=== PATIENT | female | born 1955 | race Caucasian/White ===

== ENCOUNTER 2017-05-16 10:40 | Emergency (ER) | payer BC ==
[2017-05-16] MEDS ORDERED: cephALEXin 250 MG CAPSULE PO STA (14:24)
[2017-05-16 15:22] LABS: BASOPHILS % (AUTO) 0.4 %; EOSINOPHILS % (AUTO) 0.1 %; HGB - HEMOGLOBIN 13.9 g/dL (12.0-16.0); LYMPHOCYTES # (AUTO) 0.8 10^3/uL (1.5-3.5); LYMPHOCYTES % (AUTO) 9.6 %; MEAN CORPUSCULAR HEMOGLOBIN 28.9 pg (27.0-31.0); MEAN CORPUSCULAR HGB CONC 34.3 g/dL (32.0-36.0); MEAN CORPUSCULAR VOLUME 84.4 fL (81.0-99.0); MEAN PLATELET VOLUME 9.1 fL (7.9-10.8); MONOCYTES # (AUTO) 0.7 10^3/uL (0.0-1.0); MONOCYTES % (AUTO) 8.1 %; NEUTROPHILS # (AUTO) 7.2 10^3/uL (1.5-6.6); NEUTROPHILS % (AUTO) 81.8 %; PLT - PLATELET COUNT 112 10^3/uL (130-450); WHITE BLOOD COUNT 8.9 x10^3/uL (4.8-10.8)
[2017-05-16 15:30] LABS: CALCIUM 9.5 mg/dL (8.5-10.3); CREATININE 1.3 mg/dL (0.4-1.0)
--- NOTE | 2017-05-16 15:51 | ED Physician Documentation ---
History of Present Illness - Stated complaint Stated Complaint: LEFT LEG REDNESS/SWOLLEN - Chief complaint Chief Complaint: Ext Problem - History obtained from History obtained from: Patient - Additonal information Additional information: The patient is a 62-year-old female who presents with redness of her left lower extremity. She first noticed it this morning, but is unsure whether or not it had been there previously. She reports having "sweats" last night. She denies fever today. She denies cough or shortness of breath, or chest pain. She denies history of similar symptoms in the past. Her past medical history is significant for diabetes with peripheral neuropathy. 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 Review of Systems Constitutional: reports: Fatigue, Sweats Nose: denies: Congestion Throat: denies: Sore throat Cardiac: denies: Chest pain / pressure Respiratory: denies: Dyspnea, Cough GI: denies: Abdominal Pain, Nausea, Vomiting : denies: Dysuria Skin: reports: Rash (Left lower leg.) Musculoskeletal: reports: Extremity pain (Left lower leg.) Neurologic: denies: Focal weakness, Headache PD PAST MEDICAL HISTORY - Past Medical History Cardiovascular: Hypertension, High cholesterol Respiratory: None Neuro: Peripheral neuropathy Endocrine/Autoimmune: Type 2 diabetes, HyPERthyroidism GI: GERD : Incontinence HEENT: None Psych: None Musculoskeletal: Fatigue Derm: None - Past Surgical History Past Surgical History: No - Present Medications Home Medications: Ambulatory Orders Medication Instructions Recorded Confirmed Ascorbic Acid [Vitamin C] 1,000 mg PO DAILY 06/01/14 01/21/16 Aspirin [Aspirin EC] 1 tab PO DAILY 06/01/14 01/21/16 Calcium Carb, Citrate/Vit D3 1 each PO DAILY 06/01/14 01/21/16 [Calcium + D3 ER Tablet] Cinnamon Bark [Cinnamon] 1 cap PO DAILY 06/01/14 01/21/16 Ferrous Sulfate 325 mg PO DAILY 06/01/14 01/21/16 Lutein [Natural Lutein] 20 mg PO DAILY 06/01/14 01/21/16 Metoprolol Tartrate 100 mg PO BID 06/01/14 01/21/16 Multivitamin [Multi Vitamin Daily] 1 each PO DAILY 06/01/14 01/21/16 cephALEXin [Cephalexin] 500 mg PO TID #20 tablet 05/16/17 - Allergies Allergies/Adverse Reactions: Allergies Allergy/AdvReac Type Severity Reaction Status Date / Time No Known Drug Allergies Allergy Verified 05/17/17 11:06 - Social History Does the pt smoke?: No Smoking Status: Never smoker Does the pt drink ETOH?: No Does the pt have substance abuse?: No - Immunizations Immunizations are current?: No - POLST Patient has POLST: No PD ED PE NORMAL - Vitals Vital signs reviewed: Yes (normal) - General General: Alert and oriented X 3, Well developed/nourished - HEENT HEENT: Atraumatic, Moist mucous membranes, Pharynx benign - Neck Neck: No adenopathy, No JVD - Cardiac Cardiac: RRR, No murmur - Respiratory Respiratory: No respiratory distress, Clear bilaterally - Abdomen Abdomen: Soft, Non tender - Back Back: No CVA TTP - Derm Derm: Other (Erythema along the anterior aspect of the left lower leg, with some petechiae noted.) - Extremities Extremities: No calf tenderness / cord, Other (There is 1+ pedal edema bilaterally. There is erythema along the anterior aspect of the left lower leg extending from ankle to mid lower leg. There is associated warmth to palpation , and mild tenderness. There is no lymphangitic streaking. There is no calf tenderness. Distal light touch sensation is diminished consistent with diabetic peripheral neuropathy.) - Neuro Neuro: Alert and oriented X 3, No motor deficit, Other (Peripheral neuropathy) Results - Vitals Vitals: Vital Signs - 24 hr 05/16/17 15:56 Heart Rate 71 Respiratory 16 Rate Blood Pressure 110/50 L O2 Saturation 99 Oxygen O2 Source Room air - Labs Labs: Laboratory Tests 05/16/17 05/16/17 15:10 15:10 WBC 8.9 RBC 4.80 Hgb 13.9 Hct 40.5 MCV 84.4 MCH 28.9 MCHC 34.3 RDW 14.0 Plt Count 112 L MPV 9.1 Neut # 7.2 H Lymph # 0.8 L [place] # 0.7 Eos # 0.0 Baso # 0.0 Absolute Nucleated RBC 0.01 Nucleated RBC % 0.1 Sodium 137 Potassium 3.6 Chloride 102 Carbon Dioxide 25 Anion Gap 10.0 BUN 27 H Creatinine 1.3 H Estimated GFR (MDRD) 42 L Glucose 100 Calcium 9.5 PD MEDICAL DECISION MAKING - ED course Complexity details: reviewed results, re-evaluated patient, considered differential, d/w patient ED course: The patient's presentation is consistent with cellulitis of the left lower extremity. She does not appear septic, and her white blood cell count is normal at 8.9. DVT was considered, but is less likely, with no calf tenderness , and no evidence of swelling on the left leg greater than the right. Treatment in the emergency department included administration of cephalexin 500 mg orally. She is being discharged with prescription for cephalexin. 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 Departure - Departure Disposition: 01 Home, Self Care Clinical Impression: Cellulitis Qualifiers: Site of cellulitis: extremity Site of cellulitis of extremity: lower extremity Laterality: left Qualified Code(s): L03.116 - Cellulitis of left lower limb Diabetes Qualifiers: Diabetes mellitus type: type 2 Condition: Stable Instructions: ED Infec Skin Cellulitis Follow-Up: Linda Panda PA-C [Primary Care Provider] - Prescriptions: cephALEXin [Cephalexin] 500 mg PO TID #20 tablet Comments: Keep your left leg elevated as much of the time as possible. Take cephalexin 3 times daily as prescribed. He can use Tylenol or ibuprofen if needed for fever or discomfort. Follow up with your primary physician within 1-2 weeks. Call to schedule appointment. Return to the emergency department if you develop increasing redness or swelling of your leg, or otherwise worsening symptoms. Discharge Date/Time: 05/16/17 16:00
[2017-05-16 15:57] VITALS: BP 110/50
== END 2017-05-16 16:00 | disposition home or self-care (01) ==
LOC: ED 10:40
DX: L03.116 Cellulitis of left lower limb (principal); I10 Essential (primary) hypertension; E11.42 Type 2 diabetes mellitus with diabetic polyneuropathy; E78.00 Pure hypercholesterolemia, unspecified; E05.90 Thyrotoxicosis, unspecified without thyrotoxic crisis or storm; K21.9 Gastro-esophageal reflux disease without esophagitis; Z79.82 Long term (current) use of aspirin
CPT/HCPCS: 36415; 80048; 85025; 99283; A9270

== ENCOUNTER 2017-05-17 10:59 | Inpatient (IN) | payer BC ==
[2017-05-17] MEDS ORDERED: cefTRIAXone 1 GM in SODIUM CHLORIDE 0.9% MINIBAG 100 ML IV STA (13:06)
--- NOTE | 2017-05-17 13:09 | ED Physician Documentation ---
History of Present Illness - Stated complaint Stated Complaint: LEFT LEG/FOOT PX - Chief complaint Chief Complaint: Ext Problem - History obtained from History obtained from: Patient, Family - History of Present Illness Timing: How many days ago (3) - Additonal information Additional information: 62-year-old female developed a headache on Friday 3 days ago the following night she developed some sweats and in the morning of the day after that she noticed some swelling and redness to her left calf. This is the same leg she had amputation of the fifth toe. She has had a similar infectious process 3 years ago.She was seen in the emergency department yesterday and started on Keflex. Overnight the rash like redness that was present on her calf has become confluent.She has noted the callus on the sole of her foot to be draining some clear fluid. Review of Systems Constitutional: reports: Fatigue, Sweats. denies: Fever Eyes: denies: Decreased vision Ears: denies: Ear pain Nose: denies: Congestion Throat: denies: Sore throat Cardiac: denies: Chest pain / pressure, Palpitations Respiratory: denies: Dyspnea, Cough GI: denies: Abdominal Pain, Nausea, Vomiting : denies: Dysuria, Frequency Skin: reports: Rash Musculoskeletal: reports: Extremity pain, Extremity swelling. denies: Neck pain , Back pain Neurologic: reports: Headache. denies: Generalized weakness, Focal weakness, Numbness, Head injury, LOC PD PAST MEDICAL HISTORY - Past Medical History Past Medical History: Yes Cardiovascular: Hypertension, High cholesterol Respiratory: None Neuro: None Endocrine/Autoimmune: HyPERthyroidism GI: GERD : Incontinence HEENT: None Psych: None Musculoskeletal: Fatigue Derm: None - Past Surgical History Past Surgical History: Yes - Present Medications Home Medications: Ambulatory Orders Medication Instructions Recorded Confirmed Ascorbic Acid [Vitamin C] 1,000 mg PO DAILY 06/01/14 05/17/17 Aspirin [Aspirin EC] 1 tab PO DAILY 06/01/14 05/17/17 Calcium Carb, Citrate/Vit D3 1 each PO DAILY 06/01/14 05/17/17 [Calcium + D3 ER Tablet] Cinnamon Bark [Cinnamon] 1 cap PO DAILY 06/01/14 05/17/17 Ferrous Sulfate 325 mg PO DAILY 06/01/14 05/17/17 Lutein [Natural Lutein] 20 mg PO DAILY 06/01/14 05/17/17 Metoprolol Tartrate 100 mg PO BID 06/01/14 05/17/17 Multivitamin [Multi Vitamin Daily] 1 each PO DAILY 06/01/14 05/17/17 cephALEXin [Cephalexin] 500 mg PO TID #20 tablet 05/16/17 05/17/17 Amlodipine Bes/Olmesartan Med 1 tab PO DAILY 05/17/17 05/17/17 [Tyrese 5-20 mg Tablet] - Allergies Allergies/Adverse Reactions: Allergies Allergy/AdvReac Type Severity Reaction Status Date / Time No Known Drug Allergies Allergy Verified 05/17/17 11:06 - Social History Does the pt smoke?: No Smoking Status: Never smoker Does the pt drink ETOH?: No Does the pt have substance abuse?: No - Immunizations Immunizations are current?: No - POLST Patient has POLST: No PD ED PE NORMAL - Vitals Vital signs reviewed: Yes (hypotensive with wide pulse pressure ) - General General: Alert and oriented X 3, No acute distress, Well developed/nourished - HEENT HEENT: Atraumatic, PERRL, EOMI - Neck Neck: Supple, no meningeal sign - Cardiac Cardiac: RRR, No murmur - Respiratory Respiratory: No respiratory distress, Clear bilaterally - Abdomen Abdomen: Soft, Non tender - Back Back: No CVA TTP, No spinal TTP - Derm Derm: Normal color, Warm and dry - Extremities Extremities: Other (There is erythema to the anterior calf on the left. There erythema extends from the sock line on the lower calf to the knee. There is a blister in the middle of the sock line. The sock line is not deep. There is a calus on the plantar surface of the foot laterally and distally and there is no current drainage. The 5th toe is absent after amputation. ) - Neuro Neuro: No motor deficit Eye Opening: Spontaneous Motor: Obeys Commands Verbal: Oriented GCS Score: 15 - Psych Psych: Normal mood, Normal affect Results - Vitals Vitals: Vital Signs - 24 hr 05/17/17 11:03 Temperature 36.4 C L Heart Rate 69 Respiratory 20 Rate Blood Pressure 111/58 L O2 Saturation 100 Oxygen O2 Source Room air - Labs Labs: Laboratory Tests 05/17/17 05/17/17 05/17/17 13:20 13:20 13:20 WBC 7.4 RBC 5.11 Hgb 14.7 Hct 42.8 MCV 83.8 MCH 28.8 MCHC 34.4 RDW 13.7 Plt Count 148 MPV 9.7 Neut # 5.8 Lymph # 1.0 L [place] # 0.5 Eos # 0.0 Baso # 0.1 Absolute Nucleated RBC 0.00 Nucleated RBC % 0.0 ESR 28 Sodium 139 Potassium 3.5 Chloride 103 Carbon Dioxide 24 Anion Gap 12.0 BUN 28 H Creatinine 1.1 H Estimated GFR (MDRD) 50 L Glucose 120 H Calcium 9.7 Total Bilirubin 0.7 AST 22 ALT 22 Alkaline Phosphatase 56 C-Reactive Protein 13.3 H Total Protein 8.0 Albumin 4.2 Globulin 3.8 Albumin/Globulin Ratio 1.1 Lipase 40 PD MEDICAL DECISION MAKING - ED course Complexity details: reviewed old records, reviewed results, re-evaluated patient , considered differential, d/w patient ED course: 62-year-old female with left lower extremity cellulitis has failed outpatient management with Keflex. She has prior history of failure and resulting amputation. More aggressive therapy is indicated and I have consulted our hospitalist Dr. Mendoza who will admit the patient to the hospital. Here in the emergency department today she is given intravenous Rocephin. Departure - Departure Disposition: ED Place in Observation Clinical Impression: Foot ulcer due to secondary DM Cellulitis Qualifiers: Site of cellulitis: extremity Site of cellulitis of extremity: lower extremity Laterality: left Qualified Code(s): L03.116 - Cellulitis of left lower limb
[2017-05-17 13:38] LABS: BASOPHILS # (AUTO) 0.1 10^3/uL (0.0-0.1); BASOPHILS % (AUTO) 0.7 %; EOSINOPHILS % (AUTO) 0.7 %; HGB - HEMOGLOBIN 14.7 g/dL (12.0-16.0); LYMPHOCYTES % (AUTO) 13.5 %; MEAN CORPUSCULAR HEMOGLOBIN 28.8 pg (27.0-31.0); MEAN CORPUSCULAR HGB CONC 34.4 g/dL (32.0-36.0); MEAN CORPUSCULAR VOLUME 83.8 fL (81.0-99.0); MEAN PLATELET VOLUME 9.7 fL (7.9-10.8); MONOCYTES # (AUTO) 0.5 10^3/uL (0.0-1.0); MONOCYTES % (AUTO) 6.9 %; NEUTROPHILS # (AUTO) 5.8 10^3/uL (1.5-6.6); NEUTROPHILS % (AUTO) 78.2 %; PLT - PLATELET COUNT 148 10^3/uL (130-450); RED BLOOD COUNT 5.11 10^6/uL (4.20-5.40); RED CELL DISTRIBUTION WIDTH 13.7 % (12.0-15.0); WHITE BLOOD COUNT 7.4 x10^3/uL (4.8-10.8)
[2017-05-17 13:48] LABS: ALBUMIN 4.2 g/dL (3.2-5.5); ALBUMIN/GLOBULIN RATIO 1.1 (1.0-2.2); BILIRUBIN,TOTAL 0.7 mg/dL (0.2-1.0); CALCIUM 9.7 mg/dL (8.5-10.3); CREATININE 1.1 mg/dL (0.4-1.0); CRP - C-REACTIVE PROTEIN 13.3 mg/dL (0-1.0)
[2017-05-17] MEDS ORDERED: TEMAZEPAM 15 MG CAPSULE PO PRN (14:57)
[2017-05-17] MEDS ORDERED: ACETAMINOPHEN 325 MG TABLET PO PRN (14:57)
--- NOTE | 2017-05-17 15:25 | HISTORY & PHYSICAL EXAMINATION ---
Chief Complaint - Chief Complaint Chief Complaint: cellulitis History of Present Illness - Admitted From Admitted From:: ED - History Obtained From Records Reviewed: yes History obtained from: ED, chart review, patient Exam Limitations: none - History of Present Illness HPI Comment/Other: Stephanie Yeager is a well appearing 62-year old white female with a past medical history of morbid obesity, hypertension, diabetes mellitus type 2, hyperlipidemia, status post left fifth toe amputation, hyperthyroidism, GERD, and urinary incontinence. On Friday AM (8 days ago) she started to notice generalized weakness, and an illness coming on, with fever and chills. She presented to our ED yesterday with a LLE rash with swelling and tenderness, when she was prescribed oral antibiotics and sent home. Overnight, patient noted that her rash became worse and a callous that has been chronic since her amputation 3 years ago now became open. The callous is on the foot pad of her left amputation site and is the size of a dime with a tiny pencil lead sized opening in the shape of a slit. There is also a small blister noted on the anterior aspect of left arizmendi. Given this patient's history of osteomyelitis, she requires aggressive IV antibiotic treatment, wound culture and monitoring. History - Past Medical History Cardiovascular: reports: Hypertension, High cholesterol, Murmur Respiratory: reports: None, Sleep apnea (suspected as she evidence of snoring and day time sleepiness, but not worked up due to insurance issues.) Neuro: reports: None, Headache/migraine (history of ochular migraines.) Endocrine/Autoimmune: reports: HyPERthyroidism GI: reports: GERD : reports: Incontinence HEENT: reports: None Psych: reports: None Derm: reports: None MRSA Hx?: No - Past Surgical History Other past surgical history: Remarkable no surgical history except her 5th toe amputation. She still posesses all of her organs. - Family & Social History Family History: Mother: , Alzheimer's Disease, CAD, Father: , Sister: Alive and Well Living arrangement: At home Living Situation: Alone Social History Notes: Patient was born in [facility], [place] and is of [place] decent. 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 She has a 15 year old cat named Audra. She has never been and has never had children. She denies smoking, illicit drug use or alcohol use. Her closest family member is her sister, Mirtha Quintero who was present for this exam. - Substance History Use: Uses substance without health or social issues: NONE Abuse: Recurrent use of substance despite neg consequences: NONE Dependence: Experiences withdrawal or developed tolerances: NONE - POLST Patient has POLST: No POLST Status: Full Code Meds/Allgy - Home Medications Home Medications: Ambulatory Orders Medication Instructions Recorded Confirmed Ascorbic Acid [Vitamin C] 1,000 mg PO DAILY 06/01/14 05/17/17 Aspirin [Aspirin EC] 81 mg PO DAILY 06/01/14 05/17/17 Calcium Carb, Citrate/Vit D3 1 each PO DAILY 06/01/14 05/17/17 [Calcium + D3 ER Tablet] Cinnamon Bark [Cinnamon] 1 cap PO DAILY 06/01/14 05/17/17 Ferrous Sulfate 325 mg PO DAILY 06/01/14 05/17/17 Lutein [Natural Lutein] 20 mg PO DAILY 06/01/14 05/17/17 Metoprolol Tartrate 100 mg PO BID 06/01/14 05/17/17 Multivitamin [Multi Vitamin Daily] 1 each PO DAILY 06/01/14 05/17/17 Amlodipine Bes/Olmesartan Med 1 each PO DAILY 05/17/17 05/17/17 [Tyrese 5-40 mg Tablet] - Allergies Allergies/Adverse Reactions: Allergies Allergy/AdvReac Type Severity Reaction Status Date / Time No Known Drug Allergies Allergy Verified 05/17/17 11:06 Review of Systems - Constitutional Constitutional: reports: Fever, Chills - Eyes Eyes: reports: Corrective lenses - Ears, Nose & Throat Ears, Nose & Throat: reports: Postnasal drainage - Cardiovascular Cariovascular: reports: Irregular heart rate, Edema - Gastrointestinal Gastrointestinal: reports: Constipation, Reflux/heartburn - Genitourinary Genitourinary: reports: Dysuria, Incontinence - Integumentary Integumentary: reports: Dryness - Neurological Neurological: reports: Headache - All Other Systems All Other Systems: reports: Reviewed and negative Exam - Vital Signs Reviewed Vital Signs: Yes - Physical Exam General Appearance: positive: No acute distress, Alert Eyes Bilateral: positive: Normal inspection, PERRL ENT: positive: ENT inspection nml, Pharynx nml, No signs of dehydration Neck: positive: Nml inspection, Thyroid nml, No JVD, Trachea midline Respiratory: positive: Chest non-tender, No respiratory distress, Breath sounds nml Cardiovascular: positive: Regular rate & rhythm, No gallop, Systolic murmur Peripheral Pulses: positive: 2+ Abdomen: positive: Non-tender, No organomegaly, Nml bowel sounds, No distention , Other (obese) Back: positive: Nml inspection Skin: positive: Color nml, No rash, Warm, Dry Extremities: positive: Non-tender, Full ROM, Nml appearance, Pedal edema (left greater than right.) Neurologic/Psychiatric: positive: Oriented x3, CN's nml (2-12), Motor nml, Sensation nml, Mood/affect nml Reflexes: Bicep (R): 3+, Bicep (L): 3+ Conclusion/Plan - Problem List (1) Left leg cellulitis Conclusion/Plan: Patient has an irregular shaped "rash" looking cellulitis noted on LLE that we will treat as such. Outlined with a marking pen. Plan: Start IV antibiotics and orders for a wound culture that was obtained from a small blister after being lanced by a sterile needle. Monitor progression. (2) Foot ulcer due to secondary DM Conclusion/Plan: Chronic callous ulcer noted near previous amputation of 5th pinky Left toe ~3 years ago. Now this is noted to be open and appears to be a small slit in the middle of the thick callous. Plan: Monitor and suspicious for progression to reoccurring osteomyelitis. (3) Diabetes mellitus type 2, diet-controlled Conclusion/Plan: Patient states she has had diabetes for greater than 5 years and was previously on oral agents. She has since lost a total of 120lbs intentionally. She remains diet controlled and only check random sugars and are normally in the 80' s. Plan: Check HgA1C. No need to order blood sugar checks. Will monitor glucose in daily labs. (5) Hyperlipidemia associated with type 2 diabetes mellitus Conclusion/Plan: Patient has a history of this and does not take any statins. She takes cinnamon bark, and ASA. Plan: Continue medical management. Code status: FULL DVT prophylaxis: SCD's and enoxaprin. - Lab Results Lab results reviewed: Yes Fish Bones: 05/17/17 13:20 05/17/17 13:20 - Diagnostic Imaging Results Diagnostic Imaging Results: positive: Other (no diagnostic imaging taken.) - EKG Results EKG Interpreted Independently: Yes Core Measures - Anticipated LOS I expect patient to be DC'd or transferred within 96 hours.: Yes - DVT/VTE - Prophylaxis VTE/DVT Device ordered at admit?: Yes VTE/DVT Prophylaxis med ordered at admit?: Yes - Stroke - Rehab Assessment Rehab services assessment to be ordered?: Yes - AMI - Statin at Admit Aspirin Prescribed on Admit: Yes
[2017-05-17] MEDS: SODIUM CHLORIDE 0.9% 1,000 ML IV SCH (16:57)
[2017-05-17] MEDS: SODIUM CHLORIDE FLUSH 0.9% 10 ML SYRINGE IVP SCH (16:58)
[2017-05-17] MEDS: METOPROLOL TARTRATE 50 MG TABLET PO SCH (20:55)
[2017-05-17] MEDS: amLODIPine 5 MG TABLET PO SCH (20:55)
[2017-05-18] MEDS: SODIUM CHLORIDE 0.9% 1,000 ML IV SCH (02:50)
[2017-05-18 05:50] LABS: BASOPHILS % (AUTO) 0.9 %; EOSINOPHILS # (AUTO) 0.1 10^3/uL (0.0-0.7); EOSINOPHILS % (AUTO) 2.4 %; HGB - HEMOGLOBIN 11.7 g/dL (12.0-16.0); LYMPHOCYTES # (AUTO) 1.4 10^3/uL (1.5-3.5); MEAN CORPUSCULAR HEMOGLOBIN 28.6 pg (27.0-31.0); MEAN CORPUSCULAR HGB CONC 33.4 g/dL (32.0-36.0); MEAN CORPUSCULAR VOLUME 85.6 fL (81.0-99.0); MEAN PLATELET VOLUME 8.7 fL (7.9-10.8); MONOCYTES # (AUTO) 0.5 10^3/uL (0.0-1.0); MONOCYTES % (AUTO) 11.4 %; NEUTROPHILS # (AUTO) 2.4 10^3/uL (1.5-6.6); NEUTROPHILS % (AUTO) 54.3 %; PLT - PLATELET COUNT 117 10^3/uL (130-450); RED CELL DISTRIBUTION WIDTH 13.9 % (12.0-15.0); WHITE BLOOD COUNT 4.4 x10^3/uL (4.8-10.8)
[2017-05-18] MEDS: SODIUM CHLORIDE FLUSH 0.9% 10 ML SYRINGE IVP SCH ×3 (05:56→21:50)
[2017-05-18 06:05] LABS: ALBUMIN 3.1 g/dL (3.2-5.5); BILIRUBIN,TOTAL 0.6 mg/dL (0.2-1.0); CALCIUM 8.7 mg/dL (8.5-10.3); CREATININE 0.9 mg/dL (0.4-1.0); MAGNESIUM 1.9 mg/dL (1.7-2.8); PHOSPHORUS 2.6 mg/dL (2.5-4.6); TOTAL PROTEIN 6.1 g/dL (6.7-8.2)
[2017-05-18] MEDS: cefTRIAXone 1 GM in SODIUM CHLORIDE 0.9% MINIBAG 100 ML IV SCH ×2 (08:43→10:07)
[2017-05-18] MEDS: ASPIRIN EC 81 MG TABLET PO SCH (08:44)
[2017-05-18] MEDS: POTASSIUM CHLORIDE 20 MEQ TABLET PO SCH (08:44)
[2017-05-18] MEDS: METOPROLOL TARTRATE 50 MG TABLET PO SCH ×2 (08:44→21:50)
[2017-05-18] MEDS: POLYETHYLENE GLYCOL 3350 17 GM PACKET PO SCH (08:44)
[2017-05-18] MEDS: amLODIPine 5 MG TABLET PO SCH (08:44)
[2017-05-18] MEDS: CILOSTAZOL 100 MG TABLET PO SCH ×2 (12:29→21:50)
--- NOTE | 2017-05-18 14:33 | PROVIDER PROGRESS NOTE ---
Subjective - Prog Note Date Prog Note Date: 05/18/17 Prog Note Time: 14:31 - Subjective Pt reports feeling: No change Subjective: Stephanie's LLE cellulitis has very little improvement and still appears to have pitting edema and warm. She denies SOB, chest pain, N/V or a new cough. Current Medications - Current Medications Current Medications: Active Medications Acetaminophen (Tylenol) 650 mg PO Q4HR PRN PRN Reason: Pain 1 to 4 Amlodipine Besylate (Norvasc) 5 mg PO DAILY [facility] Last Admin: 05/18/17 08:44 Dose: 5 mg Aspirin (Ecotrin) 81 mg PO DAILY [facility] Last Admin: 05/18/17 08:44 Dose: 81 mg Cilostazol (Pletal) 100 mg PO BID [facility] Last Admin: 05/18/17 12:29 Dose: 100 mg Ceftriaxone Sodium 1 gm/ (Sodium Chloride) 100 mls @ 200 mls/hr IV DAILY [facility] Last Admin: 05/18/17 10:07 Dose: Not Given Metoprolol Tartrate (Lopressor) 100 mg PO BID [facility] Last Admin: 05/18/17 08:44 Dose: 100 mg Polyethylene Glycol (Miralax) 17 gm PO DAILY [facility] Last Admin: 05/18/17 08:44 Dose: 17 gm Potassium Chloride (K-Dur) 40 meq PO DAILYWM [facility] Last Admin: 05/18/17 08:44 Dose: 40 meq Sodium Chloride (Normal Saline Flush 0.9%) 10 ml IVP PRN PRN PRN Reason: NEEDED PER PROVIDER ORDERS Sodium Chloride (Normal Saline Flush 0.9%) 10 ml IVP Q8HR [facility] Last Admin: 05/18/17 13:23 Dose: Not Given Temazepam (Restoril) 15 mg PO QPM PRN PRN Reason: Insomnia Ascorbic Acid [Vitamin C] 1,000 mg PO DAILY 06/01/14 Aspirin [Aspirin EC] 81 mg PO DAILY 06/01/14 Calcium Carb, Citrate/Vit D3 [Calcium + D3 ER Tablet] 1 each PO DAILY 06/01/14 Cinnamon Bark [Cinnamon] 1 cap PO DAILY 06/01/14 Ferrous Sulfate 325 mg PO DAILY 06/01/14 Lutein [Natural Lutein] 20 mg PO DAILY 06/01/14 Metoprolol Tartrate 100 mg PO BID 06/01/14 Multivitamin [Multi Vitamin Daily] 1 each PO DAILY 06/01/14 Amlodipine Bes/Olmesartan Med [Tyrese 5-40 mg Tablet] 1 each PO DAILY 05/17/17 Objective - Vital Signs/Intake & Output Reviewed Vital Signs: Yes Vital Signs: Vital Signs x48h Temp Pulse Resp BP BP Pulse Ox 05/18/17 11:52 36.8 C 68 20 104/58 L 96 05/18/17 08:44 97/57 L 05/18/17 08:09 36.5 C 73 20 97/57 L 96 Intake & Output: Intake & Output 05/15/17 05/16/17 05/17/17 05/18/17 23:59 23:59 23:59 23:59 Intake Total 500 2848.333 Balance 500 2848.333 - Objective General Appearance: positive: No acute distress, Alert Eyes Bilateral: positive: Normal inspection, PERRL ENT: positive: ENT inspection nml, Pharynx nml, No signs of dehydration Neck: positive: Nml inspection, Thyroid nml, No JVD, Trachea midline Respiratory: positive: Chest non-tender, No respiratory distress, Breath sounds nml Cardiovascular: positive: Irregularly irregular, Bradycardia, Systolic murmur, Decreased pulse(s) Peripheral Pulses: 1+ Radial (R), 1+ Radial (L) Abdomen: positive: Non-tender, No organomegaly, Nml bowel sounds, No distention , Other (obese, soft.) Back: positive: Nml inspection Skin: positive: Color nml, No rash, Warm, Dry Extremities: positive: Pedal edema (Left greater than right.), Joint swelling ( chronic) Neurologic/Psychiatric: positive: Oriented x3, CN's nml (2-12), Motor nml, Sensation nml, Depressed mood/affect Reflexes: Bicep (R): 3+, Bicep (L): 3+ - Lab Results Fish Bones: 05/18/17 05:35 05/18/17 05:35 Other Labs: Lab Results x24hrs 05/18/17 05/18/17 05/18/17 Range/Units 13:08 05:35 05:35 WBC 4.4 L (4.8-10.8) x10^3/uL RBC 4.10 L (4.20-5.40) 10^6/uL Hgb 11.7 L (12.0-16.0) g/dL Hct 35.1 L (37.0-47.0) % MCV 85.6 (81.0-99.0) fL MCH 28.6 (27.0-31.0) pg MCHC 33.4 (32.0-36.0) g/dL RDW 13.9 (12.0-15.0) % Plt Count 117 L (130-450) 10^3/uL MPV 8.7 (7.9-10.8) fL Neut # 2.4 (1.5-6.6) 10^3/uL Lymph # 1.4 L (1.5-3.5) 10^3/uL [place] # 0.5 (0.0-1.0) 10^3/uL Eos # 0.1 (0.0-0.7) 10^3/uL Baso # 0.0 (0.0-0.1) 10^3/uL Absolute Nucleated RBC 0.00 x10^3/uL Nucleated RBC % 0.0 /100WBC Sodium 140 (135-145) mmol/L Potassium 3.1 L (3.5-5.0) mmol/L Chloride 109 (101-111) mmol/L Carbon Dioxide 26 (21-32) mmol/L Anion Gap 5.0 L (6-13) BUN 26 H (6-20) mg/dL Creatinine 0.9 (0.4-1.0) mg/dL Estimated GFR (MDRD) 63 L (>89) Glucose 91 (70-100) mg/dL POC Whole Bld Glucose (70 - 100) mg/dL Calcium 8.7 (8.5-10.3) mg/dL Phosphorus 2.6 (2.5-4.6) mg/dL Magnesium 1.9 (1.7-2.8) mg/dL Total Bilirubin 0.6 (0.2-1.0) mg/dL AST 15 (10-42) IU/L ALT 16 (10-60) IU/L Alkaline Phosphatase 42 (42-121) IU/L Troponin I < 0.04 (<0.49) ng/mL Total Protein 6.1 L (6.7-8.2) g/dL Albumin 3.1 L (3.2-5.5) g/dL Globulin 3.0 (2.1-4.2) g/dL Albumin/Globulin Ratio 1.0 (1.0-2.2) 05/17/17 Range/Units 16:39 WBC (4.8-10.8) x10^3/uL RBC (4.20-5.40) 10^6/uL Hgb (12.0-16.0) g/dL Hct (37.0-47.0) % MCV (81.0-99.0) fL MCH (27.0-31.0) pg MCHC (32.0-36.0) g/dL RDW (12.0-15.0) % Plt Count (130-450) 10^3/uL MPV (7.9-10.8) fL Neut # (1.5-6.6) 10^3/uL Lymph # (1.5-3.5) 10^3/uL [place] # (0.0-1.0) 10^3/uL Eos # (0.0-0.7) 10^3/uL Baso # (0.0-0.1) 10^3/uL Absolute Nucleated RBC x10^3/uL Nucleated RBC % /100WBC Sodium (135-145) mmol/L Potassium (3.5-5.0) mmol/L Chloride (101-111) mmol/L Carbon Dioxide (21-32) mmol/L Anion Gap (6-13) BUN (6-20) mg/dL Creatinine (0.4-1.0) mg/dL Estimated GFR (MDRD) (>89) Glucose (70-100) mg/dL POC Whole Bld Glucose 82 (70 - 100) mg/dL Calcium (8.5-10.3) mg/dL Phosphorus (2.5-4.6) mg/dL Magnesium (1.7-2.8) mg/dL Total Bilirubin (0.2-1.0) mg/dL AST (10-42) IU/L ALT (10-60) IU/L Alkaline Phosphatase (42-121) IU/L Troponin I (<0.49) ng/mL Total Protein (6.7-8.2) g/dL Albumin (3.2-5.5) g/dL Globulin (2.1-4.2) g/dL Albumin/Globulin Ratio (1.0-2.2) - Diagnostic Imaging Diagnostic Imaging Results: positive: Prelim report reviewed, Final report reviewed Assessment/Plan - Problem List (1) Left leg cellulitis Impression: Patient has an irregular shaped "rash" looking cellulitis noted on LLE that we will treat as such. Outlined with a marking pen. Cultures still pending. Most concerning is the open thick callous located on pad of foot near 5th toe amputation. MRI of left foot has been order and will likely be completed tomorrow. Plan: Start IV antibiotics and orders for a wound culture that was obtained from a small blister after being lanced by a sterile needle. Monitor progression. 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 Now this is noted to be open and appears to be a small slit in the middle of the thick callous. Plan: Monitor and suspicious for progression to reoccurring osteomyelitis. MRI of left foot ordered and pending. (3) Diabetes mellitus type 2, diet-controlled Impression: Patient states she has had diabetes for greater than 5 years and was previously on oral agents. She has since lost a total of 120lbs intentionally. She remains diet controlled and only check random sugars and are normally in the 80' s. Last noted HgA1C was 5.1 in 01/2016. Repeat value ordered and pending. Plan: No need to order blood sugar checks. Will monitor glucose in daily labs. (4) Hypertension Impression: Patient is being treated for hypertension using a beta emery and an calcium channel emery/ARB at home. Plan: Patient can continue home medications, but will monitored on telemetry. (5) Hyperlipidemia associated with type 2 diabetes mellitus Impression: Patient has a history of this and does not take any statins. She takes cinnamon bark, and ASA. Plan: Continue medical management. (6) New onset atrial fibrillation Impression: EKG completed later yesterday that showed atrial fibrillation. Patient is unaware of this, and denies a history of heart arrhythmias. Plan: Monitor on telemetry and consider anticoagulation, mcfp.
[2017-05-19 06:05] LABS: BASOPHILS % (AUTO) 0.9 %; EOSINOPHILS # (AUTO) 0.1 10^3/uL (0.0-0.7); EOSINOPHILS % (AUTO) 2.9 %; HGB - HEMOGLOBIN 11.3 g/dL (12.0-16.0); LYMPHOCYTES # (AUTO) 1.2 10^3/uL (1.5-3.5); LYMPHOCYTES % (AUTO) 29.5 %; MEAN CORPUSCULAR HEMOGLOBIN 29.2 pg (27.0-31.0); MEAN CORPUSCULAR HGB CONC 34.3 g/dL (32.0-36.0); MEAN CORPUSCULAR VOLUME 85.3 fL (81.0-99.0); MEAN PLATELET VOLUME 8.7 fL (7.9-10.8); MONOCYTES # (AUTO) 0.5 10^3/uL (0.0-1.0); MONOCYTES % (AUTO) 11.2 %; NEUTROPHILS # (AUTO) 2.3 10^3/uL (1.5-6.6); NEUTROPHILS % (AUTO) 55.5 %; PLT - PLATELET COUNT 136 10^3/uL (130-450); RED BLOOD COUNT 3.88 10^6/uL (4.20-5.40); RED CELL DISTRIBUTION WIDTH 13.2 % (12.0-15.0); WHITE BLOOD COUNT 4.1 x10^3/uL (4.8-10.8)
[2017-05-19 06:15] LABS: ALBUMIN 3.1 g/dL (3.2-5.5); BILIRUBIN,TOTAL 0.3 mg/dL (0.2-1.0); CALCIUM 8.8 mg/dL (8.5-10.3); CREATININE 0.8 mg/dL (0.4-1.0); CRP - C-REACTIVE PROTEIN 3.2 mg/dL (0-1.0); TOTAL PROTEIN 6.3 g/dL (6.7-8.2)
[2017-05-19] MEDS: SODIUM CHLORIDE FLUSH 0.9% 10 ML SYRINGE IVP SCH ×3 (06:20→21:19)
[2017-05-19 07:29] LABS: HB2 TOTAL 11.9 g/dL; HEMOGLOBIN A1C 0.37 g/dL
[2017-05-19] MEDS: SODIUM CHLORIDE FLUSH 0.9% 10 ML SYRINGE IVP PRN (09:01)
[2017-05-19] MEDS: cefTRIAXone 1 GM in SODIUM CHLORIDE 0.9% MINIBAG 100 ML IV SCH (09:02)
[2017-05-19] MEDS: POTASSIUM CHLORIDE 20 MEQ TABLET PO SCH (09:04)
[2017-05-19] MEDS: amLODIPine 5 MG TABLET PO SCH (09:04)
[2017-05-19] MEDS: CILOSTAZOL 100 MG TABLET PO SCH ×2 (09:05→21:18)
[2017-05-19] MEDS: ASPIRIN EC 81 MG TABLET PO SCH (09:05)
[2017-05-19] MEDS: METOPROLOL TARTRATE 50 MG TABLET PO SCH ×2 (09:06→21:19)
[2017-05-19] MEDS: POLYETHYLENE GLYCOL 3350 17 GM PACKET PO SCH (09:07)
[2017-05-19] MEDS ORDERED: GADOBUTROL 10 MMOL/10 ML VIAL ONE (09:47)
--- NOTE | 2017-05-19 10:07 | PROVIDER PROGRESS NOTE ---
Subjective - Prog Note Date Prog Note Date: 05/19/17 Prog Note Time: 10:07 - Subjective Pt reports feeling: Improved Subjective: Stephanie states that she would like to go home tomorrow morning because she has a bunch of stuff to do for her work. She denies SOB, chest pain, N/N or a new cough. Objective - Vital Signs/Intake & Output Reviewed Vital Signs: Yes Vital Signs: Vital Signs x48h Temp Pulse Resp BP BP Pulse Ox 05/19/17 09:06 128/82 H 05/19/17 07:43 36.6 C 71 16 128/82 H 99 05/19/17 05:00 36.6 C 78 16 125/62 97 Intake & Output: Intake & Output 05/16/17 05/17/17 05/18/17 05/19/17 23:59 23:59 23:59 23:59 Intake Total 500 3598.333 200 Balance 500 3598.333 200 - Objective General Appearance: positive: No acute distress, Alert Eyes Bilateral: positive: Normal inspection, PERRL Eyes: OU Other (exothalmous) ENT: positive: ENT inspection nml, Pharynx nml, Dry mucous membranes Neck: positive: Nml inspection, Thyroid nml, No JVD Respiratory: positive: Chest non-tender, No respiratory distress, Breath sounds nml Cardiovascular: positive: No gallop, Irregularly irregular, Systolic murmur Peripheral Pulses: 2+ Radial (R), 2+ Radial (L) Abdomen: positive: Non-tender, Nml bowel sounds, Hepatomegaly Back: positive: Nml inspection Skin: positive: No rash, Warm, Dry, Pallor Extremities: positive: Full ROM, Pedal edema (left greater than right.) Neurologic/Psychiatric: positive: Oriented x3, CN's nml (2-12), Motor nml, Sensation nml, Depressed mood/affect Reflexes: Bicep (R): 3+, Bicep (L): 3+ - Lab Results Fish Bones: 05/19/17 05:47 05/19/17 05:47 Other Labs: Lab Results x24hrs 05/19/17 05/19/17 05/19/17 Range/Units 05:47 05:47 05:47 WBC (4.8-10.8) x10^3/uL RBC (4.20-5.40) 10^6/uL Hgb (12.0-16.0) g/dL Hct (37.0-47.0) % MCV (81.0-99.0) fL MCH (27.0-31.0) pg MCHC (32.0-36.0) g/dL RDW (12.0-15.0) % Plt Count (130-450) 10^3/uL MPV (7.9-10.8) fL Neut # (1.5-6.6) 10^3/uL Lymph # (1.5-3.5) 10^3/uL [place] # (0.0-1.0) 10^3/uL Eos # (0.0-0.7) 10^3/uL Baso # (0.0-0.1) 10^3/uL Absolute Nucleated RBC x10^3/uL Nucleated RBC % /100WBC ESR 32 H (0-30) mm/Hr Sodium (135-145) mmol/L Potassium (3.5-5.0) mmol/L Chloride (101-111) mmol/L Carbon Dioxide (21-32) mmol/L Anion Gap (6-13) BUN (6-20) mg/dL Creatinine (0.4-1.0) mg/dL Estimated GFR (MDRD) (>89) Glucose (70-100) mg/dL Glycated Hemoglobin 5.0 (4.6-6.2) % Estim Average Glucose 97 (70-100) Calcium (8.5-10.3) mg/dL Total Bilirubin (0.2-1.0) mg/dL AST (10-42) IU/L ALT (10-60) IU/L Alkaline Phosphatase (42-121) IU/L Troponin I (<0.49) ng/mL C-Reactive Protein (0-1.0) mg/dL Total Protein (6.7-8.2) g/dL Albumin (3.2-5.5) g/dL Globulin (2.1-4.2) g/dL Albumin/Globulin Ratio (1.0-2.2) TSH < 0.08 L (0.34-5.60) uIU/mL 01/08/18 01/08/18 01/07/18 Range/Units 05:47 05:47 13:08 WBC 4.1 L (4.8-10.8) x10^3/uL RBC 3.88 L (4.20-5.40) 10^6/uL Hgb 11.3 L (12.0-16.0) g/dL Hct 33.1 L (37.0-47.0) % MCV 85.3 (81.0-99.0) fL MCH 29.2 (27.0-31.0) pg MCHC 34.3 (32.0-36.0) g/dL RDW 13.2 (12.0-15.0) % Plt Count 136 (130-450) 10^3/uL MPV 8.7 (7.9-10.8) fL Neut # 2.3 (1.5-6.6) 10^3/uL Lymph # 1.2 L (1.5-3.5) 10^3/uL [place] # 0.5 (0.0-1.0) 10^3/uL Eos # 0.1 (0.0-0.7) 10^3/uL Baso # 0.0 (0.0-0.1) 10^3/uL Absolute Nucleated RBC 0.00 x10^3/uL Nucleated RBC % 0.1 /100WBC ESR (0-30) mm/Hr Sodium 141 (135-145) mmol/L Potassium 3.7 (3.5-5.0) mmol/L Chloride 111 (101-111) mmol/L Carbon Dioxide 24 (21-32) mmol/L Anion Gap 6.0 (6-13) BUN 17 (6-20) mg/dL Creatinine 0.8 (0.4-1.0) mg/dL Estimated GFR (MDRD) 73 L (>89) Glucose 98 (70-100) mg/dL Glycated Hemoglobin (4.6-6.2) % Estim Average Glucose (70-100) Calcium 8.8 (8.5-10.3) mg/dL Total Bilirubin 0.3 (0.2-1.0) mg/dL AST 15 (10-42) IU/L ALT 16 (10-60) IU/L Alkaline Phosphatase 42 (42-121) IU/L Troponin I < 0.04 (<0.49) ng/mL C-Reactive Protein 3.2 H (0-1.0) mg/dL Total Protein 6.3 L (6.7-8.2) g/dL Albumin 3.1 L (3.2-5.5) g/dL Globulin 3.2 (2.1-4.2) g/dL Albumin/Globulin Ratio 1.0 (1.0-2.2) TSH (0.34-5.60) uIU/mL - Diagnostic Imaging Diagnostic Imaging Results: positive: Final report reviewed Diagnostic Imaging Comments: MRI left foot: FINDINGS: Bones: There is no abnormal signal in the fifth metatarsal to suggest osteomyelitis. The remaining digits appear unremarkable. There is marrow edema in the base of the second metatarsal and the intermediate cuneiform, as well as the articular surfaces of the talus and navicular. The findings are consistent with osteoarthritis. Joints: There is mild hallux valgus. Bony alignment appears grossly normal. Articular Cartilage: Poorly visualized. Ligaments: The visualized collateral ligaments are intact. Tendons: The flexor and extensor tendons are unremarkable. Musculature: No edema or fatty atrophy. Other: No Booker?s neuroma. No intermetatarsal bursitis. The subcutaneous tissues are unremarkable. No abscess or cellulitis. IMPRESSION: 1. Mild hallux valgus. 2. No abnormal marrow signal in the fifth metatarsal to suggest osteomyelitis. 3. Moderate osteoarthritis of the second tarsometatarsal joint and the talonavicular joint. Assessment/Plan - Problem List (1) Left leg cellulitis Impression: Patient has an irregular shaped "rash" looking cellulitis noted on LLE that we will treat as such. Outlined with a marking pen. Cultures show NGTD. Most concerning is the open thick callous located on pad of foot near 5th toe amputation. This has been uncomfortable for patient to stand on and she sees a foot provider. MRI of left foot was negative for osteomyolitis today. Plan: Continue IV antibiotics and anticipate outpatient PO antibiotics to continue. Monitor progression. 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 Now this is noted to be open and appears to be a small slit in the middle of the thick callous. Appears to be closed. Plan: Monitor and recommend follow up with podiatry. (3) Diabetes mellitus type 2, diet-controlled Impression: Patient states she has had diabetes for greater than 5 years and was previously on oral agents. She has since lost a total of 120lbs intentionally. She remains diet controlled and only check random sugars and are normally in the 80' s. Last noted HgA1C was 5.1 in 01/2016. HgA1C was 5.0 on this admission. Plan: No need to order blood sugar checks. Will monitor glucose in daily labs. (4) Hypertension Impression: Patient is being treated for hypertension using a beta emery and an calcium channel emery/ARB at home. Plan: Patient can continue home medications, and was found to be in atrial fibrillation. Qualifiers: Hypertension type: essential hypertension Qualified Code(s): I10 - Essential (primary) hypertension (5) Hyperlipidemia associated with type 2 diabetes mellitus Impression: Patient has a history of this and does not take any statins. She takes cinnamon bark, and ASA. Plan: Continue medical management. (6) New onset atrial fibrillation Impression: EKG completed showed atrial fibrillation. Patient is unaware of this, and denies a history of heart arrhythmias. CHADS VASC score high due to DM, HTN, vascular disease and age. Plan: A newly prescribed anticoagulation, exterminator helper.
[2017-05-19] MEDS ORDERED: GADOBUTROL 10 MMOL/10 ML VIAL IVP ONE (12:02)
--- NOTE | 2017-05-19 12:44 | MRI Preliminary Report ---
Exam: MRI FOOT LT W/WO IMPRESSION: 1. Mild hallux valgus. 2. No abnormal marrow signal in the fifth metatarsal to suggest osteomyelitis. 3. Moderate osteoarthritis of the second tarsometatarsal joint, and the talonavicular joint. [facility] SITE ID: [id number]
--- NOTE | 2017-05-19 12:50 | MRI Report ---
EXAM: LEFT FOREFOOT MRI WITHOUT AND WITH CONTRAST EXAM DATE: 05/19/2017 12:09 PM. CLINICAL HISTORY: Callus overlying the distal fifth metatarsal. Fifth toe amputated. ? Osteomyelitis. COMPARISON: Prior MR foot May 2014. TECHNIQUE: Multiplanar, multisequence T1-weighted and fluid-sensitive sequences of the forefoot befor e and after administration of intravenous contrast. IV contrast: 10 mL of Gadavist. Other: Severe mot ion artifact degrades image quality. FINDINGS: Bones: There is no abnormal signal in the fifth metatarsal to suggest osteomyelitis. The remaining di gits appear unremarkable. There is marrow edema in the base of the second metatarsal and the intermed iate cuneiform, as well as the articular surfaces of the talus and navicular. The findings are consis tent with osteoarthritis. Joints: There is mild hallux valgus. Bony alignment appears grossly normal. Articular Cartilage: Poorly visualized. Ligaments: The visualized collateral ligaments are intact. Tendons: The flexor and extensor tendons are unremarkable. Musculature: No edema or fatty atrophy. Other: No Mortons neuroma. No intermetatarsal bursitis. The subcutaneous tissues are unremarkable. N o abscess or cellulitis. IMPRESSION: 1. Mild hallux valgus. 2. No abnormal marrow signal in the fifth metatarsal to suggest osteomyelitis. 3. Moderate osteoarthritis of the second tarsometatarsal joint and the talonavicular joint. [facility] Referring Provider Line: [phone] SITE ID: [id number]
[2017-05-19] MEDS: DABIGATRAN 75 MG CAPSULE PO SCH (21:17)
[2017-05-20 05:56] LABS: BASOPHILS % (AUTO) 0.8 %; EOSINOPHILS # (AUTO) 0.2 10^3/uL (0.0-0.7); HGB - HEMOGLOBIN 11.3 g/dL (12.0-16.0); LYMPHOCYTES # (AUTO) 1.3 10^3/uL (1.5-3.5); LYMPHOCYTES % (AUTO) 32.2 %; MEAN CORPUSCULAR HEMOGLOBIN 28.9 pg (27.0-31.0); MEAN CORPUSCULAR VOLUME 85.1 fL (81.0-99.0); MEAN PLATELET VOLUME 8.6 fL (7.9-10.8); MONOCYTES # (AUTO) 0.4 10^3/uL (0.0-1.0); MONOCYTES % (AUTO) 11.2 %; NEUTROPHILS % (AUTO) 51.8 %; PLT - PLATELET COUNT 135 10^3/uL (130-450); RED BLOOD COUNT 3.91 10^6/uL (4.20-5.40); RED CELL DISTRIBUTION WIDTH 13.4 % (12.0-15.0)
[2017-05-20 06:19] LABS: ALBUMIN 3.2 g/dL (3.2-5.5); BILIRUBIN,TOTAL 0.4 mg/dL (0.2-1.0); CALCIUM 9.1 mg/dL (8.5-10.3); CREATININE 0.7 mg/dL (0.4-1.0); CRP - C-REACTIVE PROTEIN 1.8 mg/dL (0-1.0); TOTAL PROTEIN 6.3 g/dL (6.7-8.2)
[2017-05-20] MEDS: SODIUM CHLORIDE FLUSH 0.9% 10 ML SYRINGE IVP SCH (06:49)
[2017-05-20 07:57] VITALS: BP 128/72
[2017-05-20] MEDS: POTASSIUM CHLORIDE 20 MEQ TABLET PO SCH (08:55)
[2017-05-20] MEDS: POLYETHYLENE GLYCOL 3350 17 GM PACKET PO SCH (08:56)
[2017-05-20] MEDS: amLODIPine 5 MG TABLET PO SCH (08:56)
[2017-05-20] MEDS: ASPIRIN EC 81 MG TABLET PO SCH (08:57)
[2017-05-20] MEDS: cefTRIAXone 1 GM in SODIUM CHLORIDE 0.9% MINIBAG 100 ML IV SCH (08:58)
[2017-05-20] MEDS: CILOSTAZOL 100 MG TABLET PO SCH (08:59)
[2017-05-20] MEDS ORDERED: MULTIVITAMIN TABLET PO SCH (09:00)
[2017-05-20] MEDS: DABIGATRAN 75 MG CAPSULE PO SCH (09:00)
[2017-05-20] MEDS ORDERED: FERROUS SULFATE 325 MG TABLET PO SCH (09:00)
[2017-05-20] MEDS ORDERED: CALCIUM CARBONATE CHEW 500 MG TABLET PO SCH (09:00)
[2017-05-20] MEDS ORDERED: CHOLECALCIFEROL 1,000 UNIT TABLET PO SCH (09:00)
[2017-05-20] MEDS: METOPROLOL TARTRATE 50 MG TABLET PO SCH (09:00)
[2017-05-20] MEDS ORDERED: ASCORBIC ACID CHEW 500 MG TABLET PO SCH (09:00)
[2017-05-20] MEDS: SODIUM CHLORIDE FLUSH 0.9% 10 ML SYRINGE IVP PRN (09:02)
[2017-05-20] MEDS ORDERED: BACITRACIN OINT TOP PRN (11:36)
--- NOTE | 2017-05-20 12:18 | Discharge Plan ---
Discharge Plan Disposition: 01 Home, Self Care Condition: Stable Prescriptions: Cilostazol [Pletal] 100 mg PO BID #60 tablet Clindamycin HCl [Clindamycin 300MG CAP] 600 mg PO BID 10 Days #40 capsule Dabigatran Etexilate Mesylate [Pradaxa] 150 mg PO BID #60 capsule Saccharomyces Boulardii [Florastor] 500 mg PO BID 20 Days #80 capsule Diet: Cardiac Activity Restrictions: Activity as Tolerated Shower Restrictions: No Weight Bearing: Full Weight Instruction Topics: Cilostazol tablets, AFL/Afib, Dabigatran oral capsules, Clindamycin capsules Additional Instructions or Follow Up instructions: May follow up PCP in 3-4 days, and follow up wood mechanist in one to two weeks. Follow-Up Care: [facility] - [facility] No Smoking: If you smoke, Please STOP! Call for help. Follow-up with: Linda Panda PA-C [Primary Care Provider] -
--- NOTE | 2017-05-20 12:22 | DISCHARGE SUMMARY ---
Discharge Summary Discharge Date: 05/20/17 Discharging Provider: GARCIA Primary Care Provider: Linda Joseph Condition at Discharge: Stable Discharge Disposition: Home, Self Care Discharge Facility Name: home - DIAGNOSES Admission Diagnoses: (1) Left leg cellulitis (2) Foot ulcer due to secondary DM (3) Diabetes mellitus type 2, diet-controlled (4) Hypertension (5) Hyperlipidemia associated with type 2 diabetes mellitus (6) New onset atrial fibrillation Discharge Diagnoses with Status of Each Condition: (1) Left leg cellulitis continue antibiotics course. No swelling, tenderness. Erythema is reduced significantly per pt state. (2) Foot ulcer due to secondary DM resolved (3) Diabetes mellitus type 2, diet-controlled stable, controlled (4) Hypertension stable (5) Hyperlipidemia associated with type 2 diabetes mellitus stable, continue home regime (6) New onset atrial fibrillation HR is controlled. prescribed Pradaxa to pt per CHADS VASC score high. pt is advised to see PCP and freight sorter GUNNER to manage the new onset AFIB. - HPI History of Present Illness: please refer from Ms. Scott's HPI on 05/17/17 as the following: Stephanie Yeager is a well appearing 62-year old white female with a past medical history of morbid obesity, hypertension, diabetes mellitus type 2, hyperlipidemia, status post left fifth toe amputation, hyperthyroidism, GERD, and urinary incontinence. On Friday AM (8 days ago) she started to notice generalized weakness, and an illness coming on, with fever and chills. She presented to our ED yesterday with a LLE rash with swelling and tenderness, when she was prescribed oral antibiotics and sent home. Overnight, patient noted that her rash became worse and a callous that has been chronic since her amputation 3 years ago now became open. The callous is on the foot pad of her left amputation site and is the size of a dime with a tiny pencil lead sized opening in the shape of a slit. There is also a small blister noted on the anterior aspect of left arizmendi. Given this patient's history of osteomyelitis, she requires aggressive IV antibiotic treatment, wound culture and monitoring. - HOSPITAL COURSE Hospital Course: pt was admitted for cellulitis and small tiny drainage on left lower extremity and foot, respectively. Pt was also found to have new onset AFIB. Pt was treated with IV antibiotics. Pt had MRI on her left foot, and negative for osteomyelitis. the drainage site on left foot is healed after treatment. The erythema is significantly reduced. Unremarkable tenderness and swelling after treatment. New onset of AFIB was treated with Pradaxa based her kamille CHADS scale. Pt was prescribed antibiotics for continue to finish the antibiotics course for cellulitis. Pt was advised to see her PCP and freight sorter to manage her new onset of Afib in 3-4 days. - ALLERGIES Allergies/Adverse Reactions: Allergies Allergy/AdvReac Type Severity Reaction Status Date / Time No Known Drug Allergies Allergy Verified 05/17/17 11:06 - MEDICATIONS Home Medications: Ambulatory Orders Medication Instructions Recorded Confirmed Ascorbic Acid [Vitamin C] 1,000 mg PO DAILY 06/01/14 05/17/17 Aspirin [Aspirin EC] 81 mg PO DAILY 06/01/14 05/17/17 Calcium Carb, Citrate/Vit D3 1 each PO DAILY 06/01/14 05/17/17 [Calcium + D3 ER Tablet] Cinnamon Bark [Cinnamon] 1 cap PO DAILY 06/01/14 05/17/17 Ferrous Sulfate 325 mg PO DAILY 06/01/14 05/17/17 Lutein [Natural Lutein] 20 mg PO DAILY 06/01/14 05/17/17 Metoprolol Tartrate 100 mg PO BID 06/01/14 05/17/17 Multivitamin [Multi Vitamin Daily] 1 each PO DAILY 06/01/14 05/17/17 Amlodipine Bes/Olmesartan Med 1 each PO DAILY 05/17/17 05/17/17 [Tyrese 5-40 mg Tablet] Cilostazol [Pletal] 100 mg PO BID #60 tablet 05/19/17 Dabigatran Etexilate Mesylate 150 mg PO BID #60 capsule 05/19/17 [Pradaxa] Saccharomyces Boulardii [Florastor] 500 mg PO BID 20 Days #80 capsule 05/19/17 Clindamycin HCl [Clindamycin 300MG 600 mg PO BID 10 Days #40 capsule 05/20/17 CAP] - PHYSICAL EXAM AT DISCHARGE General Appearance: positive: No acute distress, Alert. negative: Lethargic Eyes Bilateral: positive: Normal inspection, PERRL, EOMI, No lid inflammation, Conjunctivae nml ENT: positive: ENT inspection nml, Pharynx nml, No signs of dehydration. negative: Purulent nasal drainage, Pharyngeal erythema, Oral lesions Neck: positive: Nml inspection, Thyroid nml, No JVD, Trachea midline. negative : Thyromegaly, Lymphadenopathy (R), Lymphadenopathy (L), Stiff neck, Carotid bruit, Swelling/bruising, Tracheal deviation Respiratory: positive: Chest non-tender, No respiratory distress, Breath sounds nml. negative: Wheezes, Rales, Rhonchi Cardiovascular: positive: Regular rate & rhythm, No murmur, No gallop. negative : Irregularly irregular, Extrasystoles, Tachycardia, Bradycardia, Systolic murmur, Diastolic murmur Peripheral Pulses: positive: 2+ Abdomen: positive: Non-tender, No organomegaly, Nml bowel sounds, No distention. negative: Tenderness, Guarding, Rebound Back: positive: Nml inspection. negative: CVA tenderness (R), CVA tenderness (L ) Skin: positive: Color nml, No rash, Warm, Dry. negative: Cyanosis, Diaphoresis , Pallor, Laceration (cm) Extremities: positive: Non-tender, Full ROM, Nml appearance. negative: Calf tenderness, Joint swelling, Roberto Carlos's sign/cords Neurologic/Psychiatric: positive: Oriented x3, Motor nml, Sensation nml, Mood/ affect nml. negative: Sensory loss, Facial droop, Slurred/abnml speech, Depressed mood/affect - LABS Result Diagrams: 05/20/17 05:30 05/20/17 05:30 - FOLLOW UP Follow Up: September follow up PCP and freight sorter one week, pt was prescribed the following new medications: Cilostazol [Pletal] 100 mg PO BID #60 tablet Clindamycin HCl [Clindamycin 300MG CAP] 600 mg PO BID 10 Days #40 capsule ( I prescribed to pt for continuing of cellulitis treatment) Dabigatran Etexilate Mesylate [Pradaxa] 150 mg PO BID #60 capsule Saccharomyces Boulardii [Florastor] 500 mg PO BID 20 Days #80 capsule - TIME SPENT Time Spent in Discharge (Minutes): 50
== END 2017-05-20 13:20 | disposition home or self-care (01) | DRG 603 ==
LOC: ED 10:59 → MS2 14:57
PROVIDERS: ADMIT Nurse Practitioner; ATTEND Nurse Practitioner Gerontology
DX: L03.116 Cellulitis of left lower limb (principal); E11.621 Type 2 diabetes mellitus with foot ulcer; L97.521 Non-pressure chronic ulcer of other part of left foot limited to breakdown of skin; I48.91 Unspecified atrial fibrillation; I10 Essential (primary) hypertension; E05.90 Thyrotoxicosis, unspecified without thyrotoxic crisis or storm; K21.9 Gastro-esophageal reflux disease without esophagitis; E78.5 Hyperlipidemia, unspecified; E66.9 Obesity, unspecified; S80.822A Blister (nonthermal), left lower leg, initial encounter; X58.XXXA Exposure to other specified factors, initial encounter; Z79.82 Long term (current) use of aspirin; Z89.422 Acquired absence of other left toe(s); Z68.34 Body mass index [BMI] 34.0-34.9, adult
CPT/HCPCS: 36415; 80053; 83036; 83690; 83735; 84100; 84439; 84443; 84481; 84484; 85025; 85651; 86140; 87040; 87070; 87205; 93005; 93306; 96365; 99283; 99284

== ENCOUNTER 2017-05-27 15:16 | Outpatient (CLI) | payer BC | END 2017-05-27 15:17 | disposition home or self-care (01) | LOC: LAB.WCP 15:16 | PROVIDERS: ATTEND Physician Assistant Medical | DX: L03.90 Cellulitis, unspecified (principal) | CPT/HCPCS: 87070; 87205 ==

== ENCOUNTER 2017-06-06 08:00 | Outpatient (CLI) | payer BC ==
[2017-06-06 20:54] LABS: BASOPHILS # (AUTO) 0.1 10^3/uL (0.0-0.1); BASOPHILS % (AUTO) 2.1 %; EOSINOPHILS # (AUTO) 0.2 10^3/uL (0.0-0.7); EOSINOPHILS % (AUTO) 5.5 %; HGB - HEMOGLOBIN 13.4 g/dL (12.0-16.0); LYMPHOCYTES # (AUTO) 1.5 10^3/uL (1.5-3.5); LYMPHOCYTES % (AUTO) 34.3 %; MEAN CORPUSCULAR HEMOGLOBIN 28.1 pg (27.0-31.0); MEAN CORPUSCULAR HGB CONC 32.3 g/dL (32.0-36.0); MEAN PLATELET VOLUME 11.7 fL (7.9-10.8); MONOCYTES # (AUTO) 0.4 10^3/uL (0.0-1.0); MONOCYTES % (AUTO) 9.3 %; NEUTROPHILS # (AUTO) 2.1 10^3/uL (1.5-6.6); NEUTROPHILS % (AUTO) 48.8 %; PLT - PLATELET COUNT 247 10^3/uL (130-450); RED BLOOD COUNT 4.77 10^6/uL (4.20-5.40); RED CELL DISTRIBUTION WIDTH 14.5 % (12.0-15.0); WHITE BLOOD COUNT 4.3 x10^3/uL (4.8-10.8)
[2017-06-06 21:11] LABS: ALBUMIN 4.5 g/dL (3.2-5.5); ALBUMIN/GLOBULIN RATIO 1.3 (1.0-2.2); BILIRUBIN,TOTAL 0.6 mg/dL (0.2-1.0); CALCIUM 9.6 mg/dL (8.5-10.3); TOTAL PROTEIN 7.9 g/dL (6.7-8.2)
== END 2017-06-06 08:01 | disposition home or self-care (01) ==
LOC: LAB.WCP 08:00
PROVIDERS: ATTEND Physician Assistant Medical
DX: R23.3 Spontaneous ecchymoses (principal)
CPT/HCPCS: 36415; 80053; 85025

== ENCOUNTER 2017-09-24 08:00 | Outpatient (CLI) | payer BC ==
[2017-09-24 12:58] LABS: ALBUMIN/GLOBULIN RATIO 1.2 (1.0-2.2); ALKALINE PHOSPHATASE 53 IU/L (42-121); ALT ALANINE AMINOTRANSFERASE 22 IU/L (10-60); AST ASPARTATE AMINOTRANSFERASE 22 IU/L (10-42); BUN - BLOOD UREA NITROGEN 22 mg/dL (6-20); CALCIUM 9.7 mg/dL (8.5-10.3); CARBON DIOXIDE - CO2 29 mmol/L (21-32); CHLORIDE 105 mmol/L (101-111); CHOL/HDL RATIO 3.3 (<4.4); CHOLESTEROL 194 mg/dL; CREATININE 0.9 mg/dL (0.4-1.0); GFR - MDRD 63 (>89); GLUCOSE 79 mg/dL (70-100); HDL CHOLESTEROL 59 mg/dL; LDL CHOLESTEROL,CALCULATED 117 mg/dL; SODIUM 139 mmol/L (135-145); TOTAL PROTEIN 7.3 g/dL (6.7-8.2); VLDL CHOLESTEROL 18 mg/dL
[2017-09-24 12:59] LABS: BASOPHILS % (AUTO) 1.2 %; EOSINOPHILS # (AUTO) 0.2 10^3/uL (0.0-0.7); EOSINOPHILS % (AUTO) 5.1 %; HGB - HEMOGLOBIN 13.3 g/dL (12.0-16.0); LYMPHOCYTES # (AUTO) 1.3 10^3/uL (1.5-3.5); LYMPHOCYTES % (AUTO) 30.4 %; MEAN CORPUSCULAR HEMOGLOBIN 29.1 pg (27.0-31.0); MEAN CORPUSCULAR HGB CONC 34.2 g/dL (32.0-36.0); MEAN CORPUSCULAR VOLUME 85.2 fL (81.0-99.0); MEAN PLATELET VOLUME 11.2 fL (7.9-10.8); MONOCYTES # (AUTO) 0.3 10^3/uL (0.0-1.0); NEUTROPHILS # (AUTO) 2.3 10^3/uL (1.5-6.6); NEUTROPHILS % (AUTO) 55.3 %; PLT - PLATELET COUNT 135 10^3/uL (130-450); RED BLOOD COUNT 4.55 10^6/uL (4.20-5.40); RED CELL DISTRIBUTION WIDTH 14.2 % (12.0-15.0); WHITE BLOOD COUNT 4.2 x10^3/uL (4.8-10.8)
[2017-09-24 13:07] LABS: HB2 TOTAL 14.6 g/dL; HEMOGLOBIN A1C 0.47 g/dL; HEMOGLOBIN A1C % 5.1 % (4.6-6.2)
[2017-09-24 13:18] LABS: THYROID STIMULATING HORMONE < 0.08 uIU/mL (0.34-5.60)
== END 2017-09-24 08:01 | disposition home or self-care (01) ==
LOC: LAB.WCP 08:00
PROVIDERS: ATTEND Physician Assistant Medical
DX: I48.0 Paroxysmal atrial fibrillation (principal); E04.9 Nontoxic goiter, unspecified; E11.51 Type 2 diabetes mellitus with diabetic peripheral angiopathy without gangrene; R53.83 Other fatigue; N28.9 Disorder of kidney and ureter, unspecified; E05.90 Thyrotoxicosis, unspecified without thyrotoxic crisis or storm
CPT/HCPCS: 36415; 80053; 80061; 83036; 83721; 84439; 84443; 85025

== ENCOUNTER 2017-10-17 08:00 | Outpatient (CLI) | payer BC | END 2017-10-17 08:01 | disposition home or self-care (01) | LOC: LAB.WCP 08:00 | PROVIDERS: ATTEND Internal Medicine Endocrinology, Diabetes & Metabolism | DX: E27.9 Disorder of adrenal gland, unspecified (principal) | CPT/HCPCS: 36415; 82533 ==

== ENCOUNTER 2018-10-16 08:00 | Outpatient (CLI) | payer BC ==
[2018-10-16 14:22] LABS: ALBUMIN 4.2 g/dL (3.2-5.5); ALBUMIN/GLOBULIN RATIO 1.1 (1.0-2.2); ALKALINE PHOSPHATASE 62 IU/L (42-121); ALT ALANINE AMINOTRANSFERASE 20 IU/L (10-60); AST ASPARTATE AMINOTRANSFERASE 22 IU/L (10-42); BILIRUBIN,TOTAL 0.8 mg/dL (0.2-1.0); BUN - BLOOD UREA NITROGEN 25 mg/dL (6-20); CALCIUM 9.5 mg/dL (8.5-10.3); CARBON DIOXIDE - CO2 23 mmol/L (21-32); CHLORIDE 107 mmol/L (101-111); CHOL/HDL RATIO 3.6 (<4.4); CHOLESTEROL 192 mg/dL; CREATININE 1.1 mg/dL (0.4-1.0); GFR - MDRD 50 (>89); GLUCOSE 96 mg/dL (70-100); HDL CHOLESTEROL 53 mg/dL; LDL CHOLESTEROL,CALCULATED 109 mg/dL; LDL/HDL RATIO 2.1 (<4.4); SODIUM 139 mmol/L (135-145); TOTAL PROTEIN 7.9 g/dL (6.7-8.2); VLDL CHOLESTEROL 30 mg/dL
[2018-10-16 15:39] LABS: HB2 TOTAL 13.9 g/dL; HEMOGLOBIN A1C 0.51 g/dL; HEMOGLOBIN A1C % 5.5 % (4.6-6.2)
== END 2018-10-16 23:59 | disposition home or self-care (01) ==
LOC: LAB.WCP 08:00
PROVIDERS: ATTEND Physician Assistant Medical
DX: E11.49 Type 2 diabetes mellitus with other diabetic neurological complication (principal)
CPT/HCPCS: 36415; 80053; 80061; 83036; 83721

== ENCOUNTER 2019-03-16 07:09 | Outpatient (CLI) | payer BC ==
[2019-03-16 14:12] LABS: ALBUMIN 4.5 g/dL (3.2-5.5); ALBUMIN/GLOBULIN RATIO 1.2 (1.0-2.2); ALKALINE PHOSPHATASE 66 IU/L (42-121); ALT ALANINE AMINOTRANSFERASE 22 IU/L (10-60); AST ASPARTATE AMINOTRANSFERASE 23 IU/L (10-42); BILIRUBIN,TOTAL 0.7 mg/dL (0.2-1.0); BUN - BLOOD UREA NITROGEN 20 mg/dL (6-20); CALCIUM 9.6 mg/dL (8.5-10.3); CARBON DIOXIDE - CO2 27 mmol/L (21-32); CHLORIDE 103 mmol/L (101-111); CHOL/HDL RATIO 2.7 (<4.4); CHOLESTEROL 162 mg/dL; GFR - MDRD 56 (>89); GLUCOSE 120 mg/dL (70-100); HDL CHOLESTEROL 61 mg/dL; LDL CHOLESTEROL,CALCULATED 69 mg/dL; LDL/HDL RATIO 1.1 (<4.4); SODIUM 139 mmol/L (135-145); TOTAL PROTEIN 8.2 g/dL (6.7-8.2); VLDL CHOLESTEROL 32 mg/dL
[2019-03-16 14:13] LABS: HB2 TOTAL 13.3 g/dL; HEMOGLOBIN A1C 0.53 g/dL; HEMOGLOBIN A1C % 5.8 % (4.6-6.2)
[2019-03-16 14:46] LABS: FREE T4 (FREE THYROXINE) 1.15 ng/dL (0.58-1.64)
== END 2019-03-16 23:59 | disposition home or self-care (01) ==
LOC: LAB.WCP 07:09
PROVIDERS: ATTEND Physician Assistant Medical
DX: E11.49 Type 2 diabetes mellitus with other diabetic neurological complication (principal); E05.90 Thyrotoxicosis, unspecified without thyrotoxic crisis or storm
CPT/HCPCS: 36415; 80053; 80061; 83036; 83721; 84439; 84443

== ENCOUNTER 2019-07-01 08:00 | Outpatient (CLI) | payer BC ==
[2019-07-01 12:36] LABS: HB2 TOTAL 14.3 g/dL; HEMOGLOBIN A1C 0.65 g/dL; HEMOGLOBIN A1C % 6.3 % (4.6-6.2)
[2019-07-01 12:47] LABS: CALCIUM 9.8 mg/dL (8.5-10.3); CREATININE 1.2 mg/dL (0.4-1.0)
== END 2019-07-01 23:59 | disposition home or self-care (01) ==
LOC: LAB.WCP 08:00
PROVIDERS: ATTEND Physician Assistant Medical
DX: E11.49 Type 2 diabetes mellitus with other diabetic neurological complication (principal)
CPT/HCPCS: 36415; 80048; 83036

== ENCOUNTER 2019-07-30 08:45 | Outpatient (CLI) | payer BC ==
--- NOTE | 2019-07-30 14:30 | Ultrasound Report ---
Reason: ABDOMINAL PAIN,RUQ Procedure Date: 07/30/2019 Accession Number: [id number] / [id number] Procedure: US - Abdomen Complete CPT Code: Final Report FULL RESULT: EXAM: ABDOMEN ULTRASOUND EXAM DATE: 07/30/2019 09:40 AM. CLINICAL HISTORY: Right upper quadrant abdominal pain. COMPARISON: None. TECHNIQUE: Real-time scanning was performed with static images obtained. FINDINGS: Liver: The liver is moderately echogenic diffusely. Mild surface nodularity noted. No focal masses or enlargement evident. The right lobe measures 17.8 cm. Main portal vein flow: Hepatopetal. Gallbladder: A fundal septation is noted with some adjacent echogenic foci and ringdown artifact suggestive of adenomyomatosis. The gallbladder wall is overall normal in thickness otherwise. Several poorly defined gallbladder stones are present in the neck measuring up to 14 mm. Negative sonographic Contreras sign. Biliary System: Common bile duct measures 6 mm. No intrahepatic or extrahepatic ductal dilatation. Pancreas: The visualized portion is unremarkable. Much of the pancreas is obscured by bowel gas. Kidneys: Right: 11.8 cm longitudinally. A prominent simple mid renal cyst measures 5.8 x 5.6 x 5.9 cm. No solid masses, calculi or hydronephrosis. Left: 9.9 cm longitudinally. Normal. No contour-deforming mass, stones, or hydronephrosis. Limited visualization. Spleen: 14.0 cm. Estimated volume 201 cc, within normal limits. Aorta and Inferior Vena Cava: Unremarkable. Other: Evaluation is limited diffusely secondary to patient's body habitus. IMPRESSION: 1. Cholelithiasis without evidence of acute cholecystitis. 2. Possible small gallbladder fundal Phrygian cap with adjacent adenomyomatosis. Follow-up suggested to ensure stability in 6-12 months. 3. Moderately fatty infiltrated liver. Mild surface nodularity could represent early changes of cirrhosis. 4. Large right renal simple cyst measuring up to 5.9 cm. RADIA
== END 2019-07-30 08:46 | disposition home or self-care (01) ==
LOC: DI 08:45
PROVIDERS: ATTEND Physician Assistant Medical
DX: K80.20 Calculus of gallbladder without cholecystitis without obstruction (principal); K76.0 Fatty (change of) liver, not elsewhere classified; N28.1 Cyst of kidney, acquired
CPT/HCPCS: 76700

== ENCOUNTER 2019-10-05 08:00 | Outpatient (CLI) | payer BC ==
[2019-10-05 18:05] LABS: BASOPHILS % (AUTO) 0.7 %; EOSINOPHILS # (AUTO) 0.2 10^3/uL (0.0-0.7); HGB - HEMOGLOBIN 14.1 g/dL (12.0-16.0); LYMPHOCYTES # (AUTO) 1.2 10^3/uL (1.5-3.5); LYMPHOCYTES % (AUTO) 20.5 %; MEAN CORPUSCULAR HEMOGLOBIN 28.5 pg (27.0-31.0); MEAN CORPUSCULAR HGB CONC 31.5 g/dL (32.0-36.0); MEAN CORPUSCULAR VOLUME 90.5 fL (81.0-99.0); MEAN PLATELET VOLUME 13.8 fL (7.9-10.8); MONOCYTES # (AUTO) 0.4 10^3/uL (0.0-1.0); MONOCYTES % (AUTO) 6.9 %; NEUTROPHILS # (AUTO) 4.2 10^3/uL (1.5-6.6); NEUTROPHILS % (AUTO) 68.6 %; PLT - PLATELET COUNT 177 10^3/uL (130-450); RED BLOOD COUNT 4.94 10^6/uL (4.20-5.40); RED CELL DISTRIBUTION WIDTH 14.7 % (12.0-15.0); WHITE BLOOD COUNT 6.1 x10^3/uL (4.8-10.8)
[2019-10-05 18:22] LABS: ALBUMIN 4.4 g/dL (3.2-5.5); ALKALINE PHOSPHATASE 81 IU/L (42-121); ALT ALANINE AMINOTRANSFERASE 22 IU/L (10-60); AST ASPARTATE AMINOTRANSFERASE 21 IU/L (10-42); BILIRUBIN,TOTAL 0.9 mg/dL (0.2-1.0); BUN - BLOOD UREA NITROGEN 18 mg/dL (6-20); CALCIUM 9.8 mg/dL (8.5-10.3); CARBON DIOXIDE - CO2 29 mmol/L (21-32); CHLORIDE 104 mmol/L (101-111); CHOL/HDL RATIO 2.6 (<4.4); CHOLESTEROL 153 mg/dL; CREATININE 1.1 mg/dL (0.4-1.0); GLUCOSE 111 mg/dL (70-100); HDL CHOLESTEROL 60 mg/dL; LDL CHOLESTEROL,CALCULATED 65 mg/dL; LDL/HDL RATIO 1.1 (<4.4); SODIUM 142 mmol/L (135-145); TOTAL PROTEIN 8.9 g/dL (6.7-8.2); VLDL CHOLESTEROL 28 mg/dL
[2019-10-05 18:28] LABS: CREATININE,URINE 322.6 mg/dL; MICROALBUMIN,URINE 12.9 mg/dL (0-300.0)
[2019-10-05 18:41] LABS: HB2 TOTAL 14.3 g/dL; HEMOGLOBIN A1C 0.58 g/dL; HEMOGLOBIN A1C % 5.9 % (4.6-6.2)
[2019-10-05 19:07] LABS: FREE T4 (FREE THYROXINE) 1.06 ng/dL (0.58-1.64)
== END 2019-10-05 23:59 | disposition home or self-care (01) ==
LOC: LAB.WCP 08:00
PROVIDERS: ATTEND Physician Assistant Medical
DX: E11.40 Type 2 diabetes mellitus with diabetic neuropathy, unspecified (principal); E05.90 Thyrotoxicosis, unspecified without thyrotoxic crisis or storm; D50.8 Other iron deficiency anemias
CPT/HCPCS: 36415; 80053; 80061; 82043; 82570; 83036; 83721; 84439; 84443; 85025

== ENCOUNTER 2019-10-27 15:11 | Outpatient (CLI) | payer BC ==
--- NOTE | 2019-10-27 15:47 | DEXA Report ---
Reason: POST MENOPAUSAL Procedure Date: 10/27/2019 Accession Number: [id number] / [id number] Procedure: DEX - Dexa Spine and/or Hip CPT Code: Final Report FULL RESULT: PROCEDURE: Dexa Spine and/or Hip INDICATIONS: POST MENOPAUSAL TECHNIQUE: Dual energy x-ray absorptiometry (DXA) was performed on a [employer] System. Regions measured are the AP Spine, femoral neck, and if needed forearm. COMPARISON: None. FINDINGS: Lumbar Spine: Bone Mineral Density 1.706 g/cm/cm,T score 4.4, Left Femoral Neck: Bone Mineral Density 0.977 g/cm/cm, T score -0.2, (T score greater or equal to -1.0: NORMAL) (T score from -1.1 to -2.4: OSTEOPENIA) (T score less than or equal to -2.5 to: OSTEOPOROSIS) Impression: Normal. Patients with diagnosis of osteoporosis or osteopenia should have regular bone mineral density assessment. For those eligible for Medicare, routine testing is allowed once every 2 years. Testing frequency can be increased for patients who have rapidly progressing disease or for those who are receiving medical therapy to restore bone mass. Reviewed by: Cam Krishnamurthy MD on 10/27/2019 3:46 PM PDT Approved by: Cam Krishnamurthy MD on 10/27/2019 3:46 PM PDT Station ID: [id number]
== END 2019-10-27 15:12 | disposition home or self-care (01) ==
LOC: DI 15:11
PROVIDERS: ATTEND Physician Assistant Medical
DX: Z78.0 Asymptomatic menopausal state (principal)
CPT/HCPCS: 77080

== ENCOUNTER 2020-11-17 19:34 | Emergency (ER) | payer BC, MEDICARE ==
[2020-11-17] MEDS ORDERED: AMOX/CLAV 875 MG/125 MG TABLET PO STA (21:21)
[2020-11-17] MEDS ORDERED: metFORMIN 500 MG TABLET PO STA (21:21)
--- NOTE | 2020-11-17 21:23 | ED Physician Documentation ---
PD HPI LOWER EXT INJURY - Stated complaint Stated Complaint: LT TOE RED & SWOLLEN/DIABETIC - Chief complaint Chief Complaint: Wound - History obtained from History obtained from: Patient - Additional information Additional information: Has a history of diabetes, currently untreated. By about 5 days ago she stubbed her toe and there was a small little wound on the left great toe. Over the last day or so it has become swollen and red. No fevers. She does have neuropathy in that foot. She checked her blood sugar at home and it was in the 220s. Review of Systems Constitutional: reports: Reviewed and negative Eyes: reports: Reviewed and negative Ears: reports: Reviewed and negative Nose: reports: Reviewed and negative Throat: reports: Reviewed and negative PD PAST MEDICAL HISTORY - Past Medical History Cardiovascular: Hypertension, High cholesterol, Murmur Respiratory: None, Sleep apnea (suspected as she evidence of snoring and day time sleepiness, but not worked up due to insurance issues.) Endocrine/Autoimmune: HyPERthyroidism GI: GERD : Incontinence HEENT: None Psych: None Musculoskeletal: Fatigue Derm: None - Past Surgical History Past Surgical History: Yes - Present Medications Home Medications: Ambulatory Orders Medication Instructions Recorded Confirmed Ascorbic Acid [Vitamin C] 1,000 mg PO DAILY 06/01/14 05/17/17 Aspirin [Aspirin EC] 81 mg PO DAILY 06/01/14 05/17/17 Calcium Carb, Citrate/Vit D3 1 each PO DAILY 06/01/14 05/17/17 [Calcium + D3 ER Tablet] Cinnamon Bark [Cinnamon] 1 cap PO DAILY 06/01/14 05/17/17 Ferrous Sulfate 325 mg PO DAILY 06/01/14 05/17/17 Lutein [Natural Lutein] 20 mg PO DAILY 06/01/14 05/17/17 Metoprolol Tartrate 100 mg PO BID 06/01/14 05/17/17 Multivitamin [Multi Vitamin Daily] 1 each PO DAILY 06/01/14 05/17/17 Amlodipine Bes/Olmesartan Med 1 each PO DAILY 05/17/17 05/17/17 [Tyrese 5-40 mg Tablet] Dabigatran Etexilate Mesylate 150 mg PO BID #60 capsule 05/19/17 [Pradaxa] Saccharomyces Boulardii [Florastor] 500 mg PO BID 20 Days #80 capsule 05/19/17 cilostazoL [Pletal] 100 mg PO BID #60 tablet 05/19/17 Clindamycin HCl [Clindamycin 300MG 600 mg PO BID 10 Days #40 capsule 05/20/17 CAP] Amox/Clav 875/125 [Augmentin] 1 each PO Q12H #20 tablet 11/17/20 metFORMIN [Glucophage] 500 mg PO BIDWM #60 tablet 11/17/20 - Allergies Allergies/Adverse Reactions: Allergies Allergy/AdvReac Type Severity Reaction Status Date / Time No Known Drug Allergies Allergy Verified 11/17/20 19:59 - Social History Does the pt smoke?: No Smoking Status: Never smoker Does the pt drink ETOH?: No Does the pt have substance abuse?: No - Immunizations Immunizations are current?: No - POLST Patient has POLST: No POLST Status: Full Code PD ED PE NORMAL - Vitals Vital signs reviewed: Yes - General General: Alert and oriented X 3, No acute distress - Extremities Extremities: Other (There is at little neck on the medial side of the nail proximally on the left great toe with moderate surrounding cellulitis of the toe. No fluctuance or purulence.) - Neuro Neuro: Alert and oriented X 3, Normal speech Results - Vitals Vitals: Vital Signs - 24 hr 11/17/20 19:56 Temperature 36.8 C Heart Rate 78 Respiratory 16 Rate Blood Pressure 148/95 H O2 Saturation 97 Oxygen O2 Source Room air PD MEDICAL DECISION MAKING - ED course ED course: After discussion we will go ahead and restart her metformin given her blood sugars. Departure - Departure Disposition: 01 Home, Self Care Clinical Impression: Cellulitis Qualifiers: Site of cellulitis: extremity Site of cellulitis of extremity: toe Laterality: left Qualified Code(s): L03.032 - Cellulitis of left toe Condition: Good Record reviewed to determine appropriate education?: Yes Instructions: Cellulitis Dc Prescriptions: Amox/Clav 875/125 [Augmentin] 1 each PO Q12H #20 tablet metFORMIN [Glucophage] 500 mg PO BIDWM #60 tablet Comments: Return if the swelling or redness worsens. Follow-up with your doctor next week.
[2020-11-17 21:34] VITALS: BP 158/98
== END 2020-11-17 21:39 | disposition home or self-care (01) ==
LOC: ED 19:34
DX: L03.032 Cellulitis of left toe (principal); S91.102A Unspecified open wound of left great toe without damage to nail, initial encounter; W22.8XXA Striking against or struck by other objects, initial encounter; E11.40 Type 2 diabetes mellitus with diabetic neuropathy, unspecified; Z79.84 Long term (current) use of oral hypoglycemic drugs; I10 Essential (primary) hypertension; Z79.82 Long term (current) use of aspirin
CPT/HCPCS: 99282; 99283; A9270

== ENCOUNTER 2020-12-01 08:00 | Outpatient (CLI) | payer BC ==
[2020-12-01 12:16] LABS: CREATININE,URINE 343.6 mg/dL; MICROALBUM/CREATININE RATIO,UR 36.7 ug/mg (<30.0); MICROALBUMIN,URINE 12.6 mg/dL (0-300.0)
[2020-12-01 12:41] LABS: BASOPHILS # (AUTO) 0.1 10^3/uL (0.0-0.1); BASOPHILS % (AUTO) 0.9 %; EOSINOPHILS # (AUTO) 0.1 10^3/uL (0.0-0.7); EOSINOPHILS % (AUTO) 2.4 %; HCT - HEMATOCRIT 41.6 % (37.0-47.0); HGB - HEMOGLOBIN 13.1 g/dL (12.0-16.0); LYMPHOCYTES % (AUTO) 17.2 %; MEAN CORPUSCULAR HEMOGLOBIN 27.6 pg (27.0-31.0); MEAN CORPUSCULAR HGB CONC 31.5 g/dL (32.0-36.0); MEAN CORPUSCULAR VOLUME 87.6 fL (81.0-99.0); MONOCYTES # (AUTO) 0.5 10^3/uL (0.0-1.0); MONOCYTES % (AUTO) 9.1 %; NEUTROPHILS % (AUTO) 70.1 %; PLT - PLATELET COUNT 172 10^3/uL (130-450); RED BLOOD COUNT 4.75 10^6/uL (4.20-5.40); RED CELL DISTRIBUTION WIDTH 14.8 % (12.0-15.0); WHITE BLOOD COUNT 5.7 x10^3/uL (4.8-10.8)
[2020-12-01 12:49] LABS: ALKALINE PHOSPHATASE 64 IU/L (42-121); ALT ALANINE AMINOTRANSFERASE 29 IU/L (10-60); AST ASPARTATE AMINOTRANSFERASE 26 IU/L (10-42); BILIRUBIN,TOTAL 1.2 mg/dL (0.2-1.0); BUN - BLOOD UREA NITROGEN 18 mg/dL (6-20); CALCIUM 9.5 mg/dL (8.5-10.3); CARBON DIOXIDE - CO2 25 mmol/L (21-32); CHLORIDE 101 mmol/L (101-111); CHOL/HDL RATIO 2.3 (<4.4); CHOLESTEROL 107 mg/dL; GFR - MDRD 56 (>89); GLUCOSE 120 mg/dL (70-100); HDL CHOLESTEROL 47 mg/dL; LDL CHOLESTEROL,CALCULATED 32 mg/dL; LDL/HDL RATIO 0.7 (<4.4); SODIUM 137 mmol/L (135-145); TOTAL PROTEIN 7.9 g/dL (6.7-8.2); TRIGLYCERIDES 140 mg/dL; VLDL CHOLESTEROL 28 mg/dL
[2020-12-01 13:00] LABS: THYROID STIMULATING HORMONE 0.08 uIU/mL (0.34-5.60)
[2020-12-01 13:04] LABS: ESTIMATED AVERAGE GLUCOSE 160 mg/dL (70-100); HEMOGLOBIN A1c% 7.2 % (4.27-6.07)
[2020-12-01 13:37] LABS: FREE T4 (FREE THYROXINE) 1.58 ng/dL (0.58-1.64)
== END 2020-12-01 23:59 | disposition home or self-care (01) ==
LOC: LAB.WCP 08:00
PROVIDERS: ATTEND Family Medicine
DX: I10 Essential (primary) hypertension (principal); E78.5 Hyperlipidemia, unspecified; E11.49 Type 2 diabetes mellitus with other diabetic neurological complication
CPT/HCPCS: 36415; 80053; 80061; 82043; 82570; 83036; 83721; 84439; 84443; 85025

== ENCOUNTER 2020-12-21 08:08 | Outpatient (CLI) | payer BC ==
[2020-12-21] MEDS ORDERED: GADOBUTROL 7.5 MMOL/7.5 ML VIAL ONE (08:19)
[2020-12-21] MEDS ORDERED: GADOBUTROL 15 MMOL/15 ML VIAL ONE (08:20)
--- NOTE | 2020-12-21 14:33 | MRI Report ---
PROCEDURE: Toe(s) LT W/WO INDICATIONS: LEFT FOOT CELLULITIS CONTRAST: IV CONTRAST: Gadavist ml: 15 TECHNIQUE: Noncontrast sagittal T1 spin echo and T2 fast spin echo with fat saturation, long-axis T1 spin echo a nd T2 fast spin echo with fat saturation; short-axis T1 spin echo, proton density fast spin echo, and T2 fast spin echo with fat saturation through the forefoot. Post-contrast short axis, long axis, an d sagittal T1 spin echo with fat saturation through the forefoot. COMPARISON: None. FINDINGS: Image quality: Severely degraded by motion artifact, which makes examination markedly suboptimal. Bones and joints: Despite severe motion artifact, there appears to be prominent marrow signal change involving the distal phalanx of the great toe with loss of the normal fat signal intensity on T1-weig hted pulse sequences and prominent marrow edema. Soft tissues: Severe dorsal cellulitis. Overall, no definite abscess seen although evaluation is ricco edly hampered by severe motion artifact. IMPRESSION: Severely motion degraded examination. Marked marrow signal changes and enhancement invol ving the distal phalanx of the great toe which is highly suspicious for osteomyelitis. Dorsal forefoot subcutaneous cellulitis Reviewed by: Cam Krishnamurthy MD on 12/21/2020 2:32 PM PDT Approved by: Cam Krishnamurthy MD on 12/21/2020 2:32 PM PDT Station ID: [id number]
[2020-12-21] MEDS ORDERED: GADOBUTROL 15 MMOL/15 ML VIAL IVP ONE (17:49)
== END 2020-12-21 08:09 | disposition home or self-care (01) ==
LOC: DI 08:08
PROVIDERS: ATTEND Family Medicine
DX: L03.116 Cellulitis of left lower limb (principal)
CPT/HCPCS: 73720; A9585

== ENCOUNTER 2020-12-29 10:54 | Outpatient (CLI) | payer BC ==
--- NOTE | 2020-12-29 11:38 | XRAY Report ---
PROCEDURE: Foot 3 View LT INDICATIONS: LEFT GREAT TOE HX OF TRAUMA OSTEOMYELITITS VS FX TECHNIQUE: 3 views of the foot were acquired. COMPARISON: None FINDINGS: Bones: 3 views of the left foot demonstrate amputation of the fifth ray at the mid metatarsal. There are degenerative changes of the interphalangeal joints. There are also degenerative changes of the ca rpal bones. There is a fracture of the distal phalanx of the great toe. Soft tissues: No tibiotalar joint effusion. Achilles tendon appears normal. IMPRESSION: 1. Fracture of the distal phalanx of the great toe. 2. Status post left fifth ray transmetatarsal amputation. Reviewed by: Barrera Purcell on 12/29/2020 11:37 AM PDT Approved by: Barrera Purcell on 12/29/2020 11:37 AM PDT Station ID: [id number]
== END 2020-12-29 10:55 | disposition home or self-care (01) ==
LOC: DI.N 10:54
PROVIDERS: ATTEND Physician Assistant Medical
DX: L03.116 Cellulitis of left lower limb (principal); S92.422A Displaced fracture of distal phalanx of left great toe, initial encounter for closed fracture; Z89.422 Acquired absence of other left toe(s)

== ENCOUNTER 2021-12-12 08:19 | Outpatient (CLI) | payer BC ==
[2021-12-12 12:47] LABS: ESTIMATED AVERAGE GLUCOSE 146 mg/dL (70-100); HEMOGLOBIN A1c% 6.7 % (4.27-6.07)
[2021-12-12 12:51] LABS: CALCIUM 10.2 mg/dL (8.5-10.3); CREATININE 1.2 mg/dL (0.4-1.0); POTASSIUM 4.3 mmol/L (3.5-5.0)
== END 2021-12-12 08:20 | disposition home or self-care (01) ==
LOC: LAB.N 08:19
PROVIDERS: ATTEND Physician Assistant Medical
DX: E11.49 Type 2 diabetes mellitus with other diabetic neurological complication (principal)
CPT/HCPCS: 36415; 80048; 83036

== ENCOUNTER 2022-12-21 20:27 | Emergency (ER) | payer BC ==
--- NOTE | 2022-12-21 20:52 | ED Physician Documentation ---
PD HPI FEMALE - Stated complaint Stated Complaint: - Chief complaint Chief Complaint: General - History obtained from History obtained from: Patient - History of Present Illness Timing - onset: Today - Additional information Additional information: 67-year-old female with history of diabetes, A-fib on Eliquis presents for hematuria today. She states that she had an episode of painless bright bloody urine today. She states that this happened once 3 years ago right after starting Eliquis. She states that she saw a urologist and had a comprehensive work-up and no cause for her hematuria was found.Patient today otherwise feels in her usual state of health. Review of Systems Constitutional: denies: Fever, Chills GI: denies: Abdominal Pain, Nausea, Vomiting : reports: Hematuria. denies: Dysuria, Frequency, Hesitancy, Unable to Void, Incontinent Musculoskeletal: denies: Neck pain, Back pain, Joint pain Neurologic: denies: Generalized weakness, Numbness PD PAST MEDICAL HISTORY - Past Medical History Cardiovascular: Hypertension, High cholesterol, Murmur Respiratory: None, Sleep apnea (suspected as she evidence of snoring and day time sleepiness, but not worked up due to insurance issues.) Endocrine/Autoimmune: HyPERthyroidism GI: GERD : Incontinence HEENT: None Psych: None Musculoskeletal: Fatigue Derm: None - Past Surgical History Past Surgical History: Yes - Present Medications Home Medications: Ambulatory Orders Medication Instructions Recorded Confirmed Ascorbic Acid [Vitamin C] 1,000 mg PO DAILY 06/01/14 05/17/17 Aspirin [Aspirin EC] 81 mg PO DAILY 06/01/14 05/17/17 Calcium Carb, Citrate/Vit D3 1 each PO DAILY 06/01/14 05/17/17 [Calcium + D3 ER Tablet] Cinnamon Bark [Cinnamon] 1 cap PO DAILY 06/01/14 05/17/17 Ferrous Sulfate 325 mg PO DAILY 06/01/14 05/17/17 Lutein [Natural Lutein] 20 mg PO DAILY 06/01/14 05/17/17 Metoprolol Tartrate 100 mg PO BID 06/01/14 05/17/17 Multivitamin [Multi Vitamin Daily] 1 each PO DAILY 06/01/14 05/17/17 Amlodipine Bes/Olmesartan Med 1 each PO DAILY 05/17/17 05/17/17 [Tyrese 5-40 mg Tablet] Dabigatran Etexilate Mesylate 150 mg PO BID #60 capsule 05/19/17 [Pradaxa] Saccharomyces Boulardii [Florastor] 500 mg PO BID 20 Days #80 capsule 05/19/17 cilostazoL [Pletal] 100 mg PO BID #60 tablet 05/19/17 Clindamycin HCl [Clindamycin 300MG 600 mg PO BID 10 Days #40 capsule 05/20/17 CAP] Amox/Clav 875/125 [Augmentin] 1 each PO Q12H #20 tablet 11/17/20 metFORMIN [Glucophage] 500 mg PO BIDWM #60 tablet 11/17/20 - Allergies Allergies/Adverse Reactions: Allergies Allergy/AdvReac Type Severity Reaction Status Date / Time No Known Drug Allergies Allergy Verified 12/21/22 20:34 - Social History Does the pt smoke?: No Smoking Status: Never smoker Does the pt drink ETOH?: No Does the pt have substance abuse?: No - Immunizations Immunizations are current?: No - POLST Patient has POLST: No POLST Status: Full Code PD ED PE NORMAL - Vitals Vital signs reviewed: Yes - General General: Alert and oriented X 3, No acute distress, Well developed/nourished - HEENT HEENT: Atraumatic, PERRL - Neck Neck: Supple, no meningeal sign - Cardiac Cardiac: Strong equal pulses - Respiratory Respiratory: No respiratory distress, Clear bilaterally - Abdomen Abdomen: Soft, Non tender, Non distended - Back Back: No CVA TTP, No spinal TTP - Derm Derm: Normal color, Warm and dry, No rash - Extremities Extremities: No deformity, No tenderness to palpate, Normal ROM s pain, No edema - Neuro Neuro: Alert and oriented X 3, network administrator 2-12 intact, No motor deficit, Normal speech - Psych Psych: Normal mood, Normal affect Results - Vitals Vitals: Vital Signs - 24 hr 12/21/22 12/21/22 12/22/22 20:34 22:58 00:00 Temperature 36.5 C Heart Rate 75 57 L 55 L Respiratory 18 20 20 Rate Blood Pressure 150/90 H 137/102 H 156/105 H O2 Saturation 94 94 96 12/22/22 01:33 Temperature Heart Rate 59 L Respiratory 18 Rate Blood Pressure 160/104 H O2 Saturation 100 Oxygen O2 Source Room air - Labs Labs: Laboratory Tests 12/21/22 12/21/22 12/21/22 20:47 20:50 20:50 WBC 7.9 RBC 5.06 Hgb 14.1 Hct 45.2 MCV 89.3 MCH 27.9 MCHC 31.2 L RDW 14.2 Plt Count 181 MPV 11.1 H Neut # (Auto) 5.6 Lymph # (Auto) 1.5 [place] # (Auto) 0.6 Eos # (Auto) 0.1 Baso # (Auto) 0.1 Absolute Nucleated RBC 0.00 Nucleated RBC % 0.0 Sodium 137 Potassium 3.6 Chloride 104 Carbon Dioxide 27 Anion Gap 6.0 BUN 18 Creatinine 1.0 Estimated GFR (MDRD) 55 L Glucose 307 H Calcium 9.7 Total Bilirubin 0.7 AST 25 ALT 28 Alkaline Phosphatase 79 Total Protein 8.4 Albumin 4.2 Globulin 4.2 Albumin/Globulin Ratio 1.0 Urine Color YELLOW Urine Clarity CLOUDY Urine pH 5.0 Ur Specific [place] >=1.030 H Urine Protein 100 H Urine Glucose (UA) 500 H Urine Ketones TRACE Urine Occult Blood TRACE-INTA Urine Nitrite NEGATIVE Urine Bilirubin NEGATIVE Urine Urobilinogen 0.2 (NORMAL) Ur Leukocyte Esterase TRACE H Urine RBC 0-5 Urine WBC 11-25 H Ur Squamous Epith Cells MANY Squamous H Urine Crystals 11-25 Ca Oxalate Urine Bacteria Few Ur Microscopic Review INDICATED Urine Culture Comments NOT INDICATED PD Medical Decision Making - ED course Complexity details: reviewed results, re-evaluated patient, considered differential, d/w patient, d/w family ED course: Painless hematuria. Patient has history of Eliquis use. She was evaluated for same complaint 3 years ago with unremarkable work-up, however states she has not followed up with the urologist since that time. Physical exam is unremarkable. Hemodynamically stable. Will obtain labs and CT imaging. Laboratory work is remarkable only for elevated blood glucose. Leukocyte esterase and WBCs present in urinalysis, however there are many squamous cells and this is likely contaminant. Trace calcium oxalate crystals seen, however no stone or other explanation for hematuria found on CT imaging. Patient was counseled on the results of all labs and imaging at bedside. I explained that I do not know the exact cause of her hematuria however it does not appear to be infection, stone, or mass. Patient states that since she has been in the emergency department she did use the restroom again and it was completely clear. [place] counseled that she should follow-up with either her previous urologist or with another urologist for additional work-up. Departure - Departure Disposition: 01 Home, Self Care Clinical Impression: Hematuria Qualifiers: Hematuria type: unspecified type Qualified Code(s): R31.9 - Hematuria, unspecified Condition: Stable Instructions: ED Hematuria Follow-Up: Darrel Silva MD [Provider Admit Priv/Credential] - Forms: PCP List Discharge Date/Time: 12/22/22 01:34
[2022-12-21 20:53] LABS: BASOPHILS # (AUTO) 0.1 10^3/uL (0.0-0.1); BASOPHILS % (AUTO) 0.8 %; EOSINOPHILS # (AUTO) 0.1 10^3/uL (0.0-0.7); EOSINOPHILS % (AUTO) 1.5 %; HCT - HEMATOCRIT 45.2 % (37.0-47.0); HGB - HEMOGLOBIN 14.1 g/dL (12.0-16.0); LYMPHOCYTES # (AUTO) 1.5 10^3/uL (1.5-3.5); LYMPHOCYTES % (AUTO) 18.8 %; MEAN CORPUSCULAR HEMOGLOBIN 27.9 pg (27.0-31.0); MEAN CORPUSCULAR HGB CONC 31.2 g/dL (32.0-36.0); MEAN CORPUSCULAR VOLUME 89.3 fL (81.0-99.0); MEAN PLATELET VOLUME 11.1 fL (7.9-10.8); MONOCYTES # (AUTO) 0.6 10^3/uL (0.0-1.0); MONOCYTES % (AUTO) 7.5 %; NEUTROPHILS # (AUTO) 5.6 10^3/uL (1.5-6.6); PLT - PLATELET COUNT 181 10^3/uL (130-450); RED BLOOD COUNT 5.06 10^6/uL (4.20-5.40); RED CELL DISTRIBUTION WIDTH 14.2 % (12.0-15.0); WHITE BLOOD COUNT 7.9 x10^3/uL (4.8-10.8)
[2022-12-21 21:07] LABS: BILIRUBIN,URINE NEGATIVE (NEGATIVE); GLUCOSE, URINE (UA) 500 mg/dL (NEGATIVE); KETONES,URINE (UA) TRACE mg/dL (NEGATIVE); LEUKOCYTE ESTERASE, URINE TRACE (NEGATIVE); NITRITE,URINE NEGATIVE (NEGATIVE); OCCULT BLOOD,URINE TRACE-INTA (NEGATIVE); PROTEIN,URINE 100 mg/dL (NEGATIVE); UROBILINOGEN,URINE 0.2 (NORMAL) E.U./dL (NORMAL)
[2022-12-21 21:08] LABS: CLARITY,URINE CLOUDY (CLEAR)
[2022-12-21 21:10] LABS: ALBUMIN 4.2 g/dL (3.2-5.5); BILIRUBIN,TOTAL 0.7 mg/dL (0.2-1.0); CALCIUM 9.7 mg/dL (8.5-10.3); POTASSIUM 3.6 mmol/L (3.5-4.5); TOTAL PROTEIN 8.4 g/dL (6.4-8.9)
[2022-12-21 21:17] LABS: BACTERIA,URINE Few /HPF (None Seen); CRYSTALS,URINE 11-25 Ca Oxalate /LPF; RBC,URINE 0-5 /HPF (0-5); SQUAMOUS EPITHELIAL CELL,UR MANY Squamous (<= Few)
[2022-12-22] MEDS ORDERED: iohexoL-300 100 ML VIAL IVP ONE (00:40)
--- NOTE | 2022-12-22 01:16 | CT Report ---
PROCEDURE: ABDOMEN/PELVIS W INDICATIONS: painless hematuria CONTRAST: No oral contrast, intravenous nonionic contrast was utilized. 100 ML OMNI 300 TECHNIQUE: After the administration of nonionic contrast, 5 mm thick sections acquired from the diaphragms to th e symphysis. 5 mm thick coronal and sagittal reformats were acquired. For radiation dose reduction, the following was used: automated exposure control, adjustment of mA and/or kV according to patient size. COMPARISON: FINDINGS: Image quality: Excellent. Lung bases and heart: Unremarkable. Liver: No solid mass. Gallbladder and biliary tree: No inflammation but there is a small calcified gallstone within the ant erior gallbladder lumen. Spleen: No splenomegaly. Pancreas: No pancreatic ductal dilation. Adrenals: No adrenal nodule on the right but there is a solid-appearing 3.5 cm left adrenal mass.. Kidneys and ureters: No hydronephrosis. No renal cystic lesion which requires follow up. No solid mas s. Bowel and peritoneum: No bowel distension. No pathologic free fluid. Lymph nodes: No central or retroperitoneal adenopathy. Vessels: No infrarenal aortic aneurysm. PELVIS Reproductive organs: Unremarkable. Bladder: No abnormal wall thickening, accounting for underdistension. Pelvic lymph nodes: No pelvic adenopathy by size criteria. Bones: No aggressive osseous abnormality. Other: No significant ventral or inguinal hernia. IMPRESSION: Source of painless hematuria is not found. Urology consultation appears warranted electively. Note is made of a 3.5 cm left adrenal solid mass which should be addressed with the consultation anticipated . Incidental note is made of a single small calcified gallstone within the gallbladder lumen without ev idence of biliary obstruction or acute cholecystitis.. Reviewed by: Paul Ureña MD on 12/22/2022 1:14 AM PDT Approved by: Paul Ureña MD on 12/22/2022 1:14 AM PDT Station ID: [id number]
[2022-12-22 01:34] VITALS: BP 160/104; O2SAT 100
== END 2022-12-22 01:34 | disposition home or self-care (01) ==
LOC: ED 20:27
DX: R31.9 Hematuria, unspecified (principal); I10 Essential (primary) hypertension
CPT/HCPCS: 36415; 74177; 80053; 81001; 85025; 99283; 99284; Q9967; 81003; 87086

== ENCOUNTER 2023-01-22 08:19 | Outpatient (CLI) | payer BC ==
[2023-01-22 12:28] LABS: BASOPHILS % (AUTO) 0.5 %; EOSINOPHILS # (AUTO) 0.1 10^3/uL (0.0-0.7); EOSINOPHILS % (AUTO) 1.8 %; HGB - HEMOGLOBIN 13.9 g/dL (12.0-16.0); LYMPHOCYTES # (AUTO) 1.3 10^3/uL (1.5-3.5); LYMPHOCYTES % (AUTO) 21.5 %; MEAN CORPUSCULAR HEMOGLOBIN 28.1 pg (27.0-31.0); MEAN CORPUSCULAR HGB CONC 31.6 g/dL (32.0-36.0); MEAN CORPUSCULAR VOLUME 88.9 fL (81.0-99.0); MEAN PLATELET VOLUME 13.7 fL (7.9-10.8); MONOCYTES # (AUTO) 0.5 10^3/uL (0.0-1.0); MONOCYTES % (AUTO) 8.8 %; NEUTROPHILS % (AUTO) 67.2 %; PLT - PLATELET COUNT 139 10^3/uL (130-450); RED BLOOD COUNT 4.95 10^6/uL (4.20-5.40); RED CELL DISTRIBUTION WIDTH 14.1 % (12.0-15.0)
[2023-01-22 12:46] LABS: ALBUMIN/GLOBULIN RATIO 1.1 (1.0-2.2); ALKALINE PHOSPHATASE 76 IU/L (42-121); ALT ALANINE AMINOTRANSFERASE 35 IU/L (10-60); AST ASPARTATE AMINOTRANSFERASE 29 IU/L (10-42); BUN - BLOOD UREA NITROGEN 16 mg/dL (6-20); CALCIUM 9.9 mg/dL (8.5-10.3); CARBON DIOXIDE - CO2 29 mmol/L (21-32); CHLORIDE 102 mmol/L (101-111); CHOL/HDL RATIO 2.8 (<4.4); CHOLESTEROL 138 mg/dL; GFR - MDRD 55 (>89); GLUCOSE 311 mg/dL (74-104); HDL CHOLESTEROL 50 mg/dL; LDL CHOLESTEROL,CALCULATED 33 mg/dL; LDL/HDL RATIO 0.7 (<4.4); POTASSIUM 4.3 mmol/L (3.5-4.5); SODIUM 136 mmol/L (135-145); TOTAL PROTEIN 7.6 g/dL (6.4-8.9); TRIGLYCERIDES 273 mg/dL (48-352); VLDL CHOLESTEROL 55 mg/dL
[2023-01-22 13:06] LABS: MICROALBUMIN,URINE 35.6 mg/dL
[2023-01-22 13:16] LABS: CREATININE,URINE 426.3 mg/dL; MICROALBUM/CREATININE RATIO,UR 83.5 ug/mg (<30.0)
[2023-01-22 13:46] LABS: ESTIMATED AVERAGE GLUCOSE 275 mg/dL (70-100); HEMOGLOBIN A1c% 11.2 % (4.27-6.07)
[2023-01-22 13:48] LABS: THYROID STIMULATING HORMONE 0.03 uIU/mL (0.34-5.60)
== END 2023-01-22 08:20 | disposition home or self-care (01) ==
LOC: LAB.N 08:19
PROVIDERS: ATTEND Physician Assistant Medical
DX: E78.5 Hyperlipidemia, unspecified (principal); E11.49 Type 2 diabetes mellitus with other diabetic neurological complication; E05.90 Thyrotoxicosis, unspecified without thyrotoxic crisis or storm; D50.8 Other iron deficiency anemias
CPT/HCPCS: 36415; 80053; 80061; 82043; 82570; 83036; 83721; 84439; 84443; 85025

== ENCOUNTER 2023-05-13 07:35 | Outpatient (CLI) | payer BC ==
--- NOTE | 2023-05-13 16:56 | XRAY Report ---
PROCEDURE: Cervical Spine 2-3V INDICATIONS: NECK PAINS TECHNIQUE: 3 view(s) of the cervical spine were acquired. COMPARISON: Ultrasound-guided left thyroid FNA 08/01/2015. FINDINGS: Bones: No fractures or dislocations to the C7 level. The lateral masses of C1 appear intact on the odontoid view. No suspicious bony lesions. Mild to moderate multilevel intervertebral disc height na rrowing, endplate sclerosis and osteophytosis, worse at C4-C5, C5-C6. Moderate multilevel cervical sp ine facet joint arthropathy and uncovertebral hypertrophy. Soft tissues: No prevertebral soft tissue swelling. Soft tissue calcification at the anterior left lower cervical neck, likely corresponding to calcified thyroid nodule previously FNA on 08/01/2015. IMPRESSION: No acute osseous abnormality. Mild to moderate multilevel cervical spine degeneration, worse at C4-C5 and C5-C6. Moderate multilevel facet joint arthropathy and uncovertebral hypertrophy. In persists wi th conservative management, consider cross-sectional imaging with CT or MRI. Reviewed by: Izzy Walters MD on 05/13/2023 4:54 PM PST Approved by: Izzy Walters MD on 05/13/2023 4:54 PM PST Station ID: [id number]
== END 2023-05-13 07:36 | disposition home or self-care (01) ==
LOC: DI.N 07:35
PROVIDERS: ATTEND Physician Assistant Medical
DX: M47.812 Spondylosis without myelopathy or radiculopathy, cervical region (principal)

== ENCOUNTER 2023-05-28 09:25 | Outpatient (CLI) | payer BC ==
[2023-05-28 12:55] LABS: CALCIUM 10.1 mg/dL (8.5-10.3); CREATININE 1.1 mg/dL (0.6-1.3); POTASSIUM 4.4 mmol/L (3.5-4.5)
[2023-05-28 13:06] LABS: ESTIMATED AVERAGE GLUCOSE 212 mg/dL (70-100)
== END 2023-05-28 09:26 | disposition home or self-care (01) ==
LOC: LAB.N 09:25
PROVIDERS: ATTEND Physician Assistant Medical
DX: E11.49 Type 2 diabetes mellitus with other diabetic neurological complication (principal)
CPT/HCPCS: 36415; 80048; 83036

== ENCOUNTER 2023-07-13 16:28 | Emergency (ER) | payer BC ==
[2023-07-13 16:58] VITALS: O2SAT 100
--- NOTE | 2023-07-13 17:44 | ED Physician Documentation ---
PD HPI Fall - Stated complaint Stated Complaint: FALL/LT SIDE PX - Chief complaint Chief Complaint: Trauma Ch/Bk - History obtained from History obtained from: Patient, Family - History of Present Illness Mechanism of injury: Tripped Fall distance: Standing position Where injury occurred: Home Timing - onset: Last night Injury(ies) location: Chest Quality of pain: Pain, Sharp Associated symptoms: No: LOC, AMS, Amnesia, Seizures, Ear drainage, Nasal d rainage, Neck pain, Weakness, Paresthesias, Dyspnea, Nausea / vomiting, Hematemesis, Abdominal distension Worsens with: Movement, Palpation Contributing factors: Anticoagulated. No: Intoxicated Similar symptoms before: Has not had sx before Recently seen: Not recently seen - Additional information Additional information: 68-year-old Ellen Yeager with a history of atrial fibrillation on Eliquis was in her home yesterday evening in her kitchen feeling tired she went to turn around and tripped over her own feet and fell onto her left side. She had her left arm underneath her and this collided with her chest wall. She denies any pain in her head or neck and denies any strike to her head with this fall.She is presenting today with pain in the left side of her chest. Review of Systems Constitutional: denies: Fever Eyes: denies: Decreased vision Ears: denies: Ear pain Nose: denies: Congestion Throat: denies: Sore throat Cardiac: reports: Chest pain / pressure. denies: Palpitations, Pedal edema, Calf pain Respiratory: reports: Cough. denies: Dyspnea GI: denies: Nausea, Vomiting, Constipation, Diarrhea : reports: Frequency. denies: Dysuria PD PAST MEDICAL HISTORY - Past Medical History Past Medical History: Yes Cardiovascular: Hypertension, High cholesterol, Murmur Respiratory: None, Sleep apnea Endocrine/Autoimmune: HyPERthyroidism GI: GERD : Incontinence HEENT: None Psych: None Musculoskeletal: Fatigue Derm: None - Past Surgical History Past Surgical History: Yes - Present Medications Home Medications: Ambulatory Orders Medication Instructions Recorded Confirmed Ascorbic Acid [Vitamin C] 1,000 mg PO DAILY 06/01/14 07/13/23 Aspirin [Aspirin EC] 81 mg PO DAILY 06/01/14 07/13/23 Calcium Carb, Citrate/Vit D3 1 each PO DAILY 06/01/14 07/13/23 [Calcium + D3 ER Tablet] Cinnamon Bark [Cinnamon] 1 cap PO DAILY 06/01/14 07/13/23 Ferrous Sulfate 325 mg PO DAILY 06/01/14 07/13/23 Lutein [Natural Lutein] 20 mg PO DAILY 06/01/14 07/13/23 Metoprolol Tartrate 100 mg PO BID 06/01/14 07/13/23 Multivitamin [Multi Vitamin Daily] 1 each PO DAILY 06/01/14 07/13/23 Amlodipine Bes/Olmesartan Med 1 each PO DAILY 05/17/17 07/13/23 [Tyrese 5-40 mg Tablet] Dabigatran Etexilate Mesylate 150 mg PO BID #60 capsule 05/19/17 07/13/23 [Pradaxa] Saccharomyces Boulardii [Florastor] 500 mg PO BID 20 Days #80 capsule 05/19/17 07/13/23 cilostazoL [Pletal] 100 mg PO BID #60 tablet 05/19/17 07/13/23 Clindamycin HCl [Clindamycin 300MG 600 mg PO BID 10 Days #40 capsule 05/20/17 07/13/23 CAP] Amox/Clav 875/125 [Augmentin] 1 each PO Q12H #20 tablet 11/17/20 07/13/23 metFORMIN [Glucophage] 500 mg PO BIDWM #60 tablet 11/17/20 07/13/23 HYDROcod/ACETAM 5/325 [Orange 5/325] 1 - 2 tablet PO Q6H PRN #14 tablet 07/13/23 - Allergies Allergies/Adverse Reactions: Allergies Allergy/AdvReac Type Severity Reaction Status Date / Time No Known Drug Allergies Allergy Verified 07/13/23 16:58 - Social History Does the pt smoke?: No Smoking Status: Never smoker Does the pt drink ETOH?: No Does the pt have substance abuse?: No - Immunizations Immunizations are current?: No - POLST Patient has POLST: No POLST Status: Full Code PD ED PE NORMAL - Vitals Vital signs reviewed: Yes (Hypertensive mild) - General General: Alert and oriented X 3, No acute distress, Well developed/nourished - HEENT HEENT: Atraumatic, PERRL, EOMI - Neck Neck: Supple, no meningeal sign, No bony TTP - Cardiac Cardiac: RRR, No murmur - Respiratory Respiratory: No respiratory distress, Clear bilaterally, Other (Specific point tenderness to the left lateral chest wall) - Abdomen Abdomen: Soft, Non tender - Back Back: No CVA TTP, No spinal TTP - Derm Derm: Normal color, Warm and dry, No rash - Extremities Extremities: No deformity, No edema - Neuro Neuro: Alert and oriented X 3, sales rep 2-12 intact, No motor deficit, No sensory deficit, Normal speech Eye Opening: Spontaneous Motor: Obeys Commands Verbal: Oriented GCS Score: 15 - Psych Psych: Normal mood, Normal affect Results - Vitals Vitals: Oxygen O2 Source Room air - Rads (name of study) PA chest with ribs left Relevant Findings:: Prelim report reviewed (Impression: No displaced rib fracture or pneumothorax.), EMP independent interpretation of test PD Medical Decision Making - ED course Complexity details: reviewed results, re-evaluated patient, considered differential, d/w patient, d/w family ED course: 68-year-old female with a fall onto her left side contusion to her chest wall does not have evidence of rib fracture or hemo or pneumothorax. Departure - Departure Disposition: 01 Home, Self Care Clinical Impression: Chest wall contusion Qualifiers: Encounter type: initial encounter Laterality: left Qualified Code(s): S20.212A - Contusion of left front wall of thorax, initial encounter Condition: Stable Instructions: ED Contusion Chest Wall, ED Contusion Vs Minor Fx Rib Follow-Up: Alva Christensen PA-C [Primary Care Provider] - Prescriptions: HYDROcod/ACETAM 5/325 [Orange 5/325] 1 - 2 tablet PO Q6H PRN #14 tablet PRN Reason: Pain Comments: Ellen, today it looks like you have a chest wall contusion. There is no evidence of a fracture on your plain film. This chest wall pain will be a problem for several weeks and pain medication will be required for comfort. I have E scribed some Orange to the [facility] in [place]. You may have a peak in your pain at about day #5. If you have uncontrolled pain and or having trouble breathing return to the emergency department for another evaluation. Discharge Date/Time: 07/13/23 19:13
[2023-07-13] MEDS: HYDROcod/ACET 5/325 Prepack 4 PO STA (18:05)
--- NOTE | 2023-07-13 18:41 | XRAY Report ---
PROCEDURE: Ribs w/PA Chest 3+V LT INDICATIONS: trauma TECHNIQUE: 2 views of the ribs were acquired, along with a single view chest. COMPARISON: None. FINDINGS: Surgical changes and devices: None. Bones and chest wall: No fractures or dislocations. No suspicious bony lesions. Overlying soft tis sues appear unremarkable. Lungs and pleura: No pleural effusions or pneumothorax. Lungs appear clear. Mediastinum: Mediastinal contours appear normal. Heart size is enlarged. IMPRESSION: No displaced rib fracture or pneumothorax. Reviewed by: Nabil Bronson MD on 07/13/2023 5:39 PM [place] Approved by: Nabil Bronson MD on 07/13/2023 5:39 PM [place] Station ID: [id number]
[2023-07-13 19:19] VITALS: BP 132/68
== END 2023-07-13 19:13 | disposition home or self-care (01) ==
LOC: ED 16:28
DX: S20.212A Contusion of left front wall of thorax, initial encounter (principal); W01.0XXA Fall on same level from slipping, tripping and stumbling without subsequent striking against object, initial encounter; Y92.000 Kitchen of unspecified non-institutional (private) residence as the place of occurrence of the external cause; I48.91 Unspecified atrial fibrillation; I10 Essential (primary) hypertension; E78.00 Pure hypercholesterolemia, unspecified; E05.90 Thyrotoxicosis, unspecified without thyrotoxic crisis or storm; Z79.01 Long term (current) use of anticoagulants; Z79.82 Long term (current) use of aspirin; Z79.84 Long term (current) use of oral hypoglycemic drugs; Z79.899 Other long term (current) drug therapy
CPT/HCPCS: 99283; 99284

== ENCOUNTER 2023-08-21 11:41 | Outpatient (CLI) | payer BC ==
[2023-08-21 18:12] LABS: CALCIUM 10.8 mg/dL (8.5-10.3); CREATININE 0.9 mg/dL (0.6-1.3)
[2023-08-21 20:36] LABS: ESTIMATED AVERAGE GLUCOSE 174 mg/dL (70-100); HEMOGLOBIN A1c% 7.7 % (4.27-6.07)
== END 2023-08-21 11:42 | disposition home or self-care (01) ==
LOC: LAB.N 11:41
PROVIDERS: ATTEND Physician Assistant Medical
DX: E11.40 Type 2 diabetes mellitus with diabetic neuropathy, unspecified (principal)
CPT/HCPCS: 36415; 80048; 83036

== ENCOUNTER 2023-12-17 08:00 | Outpatient (CLI) | payer BC | END 2023-12-17 23:59 | disposition home or self-care (01) | LOC: LAB.N 08:00 | PROVIDERS: ATTEND Physician Assistant Medical | DX: L08.9 Local infection of the skin and subcutaneous tissue, unspecified (principal) | CPT/HCPCS: 87070; 87205 ==

== ENCOUNTER 2024-01-02 10:22 | Outpatient (CLI) | payer BC ==
[2024-01-02 12:37] LABS: ESTIMATED AVERAGE GLUCOSE 186 mg/dL (70-100); HEMOGLOBIN A1c% 8.1 % (4.27-6.07)
[2024-01-02 12:41] LABS: ALBUMIN 4.2 g/dL (3.2-5.5); ALKALINE PHOSPHATASE 75 IU/L (42-121); ALT ALANINE AMINOTRANSFERASE 22 IU/L (10-60); AST ASPARTATE AMINOTRANSFERASE 17 IU/L (10-42); BILIRUBIN,TOTAL 0.7 mg/dL (0.2-1.0); BUN - BLOOD UREA NITROGEN 34 mg/dL (6-20); CALCIUM 10.2 mg/dL (8.5-10.3); CARBON DIOXIDE - CO2 26 mmol/L (21-32); CHLORIDE 106 mmol/L (101-111); CHOL/HDL RATIO 2.9 (<4.4); CHOLESTEROL 136 mg/dL; CREATININE 1.3 mg/dL (0.6-1.3); GFR - MDRD 41 (>89); GLUCOSE 170 mg/dL (74-104); HDL CHOLESTEROL 47 mg/dL; LDL CHOLESTEROL,CALCULATED 56 mg/dL; LDL/HDL RATIO 1.2 (<4.4); SODIUM 135 mmol/L (135-145); TOTAL PROTEIN 8.3 g/dL (6.4-8.9); TRIGLYCERIDES 164 mg/dL; VLDL CHOLESTEROL 33 mg/dL
== END 2024-01-02 10:23 | disposition home or self-care (01) ==
LOC: LAB.N 10:22
PROVIDERS: ATTEND Physician Assistant Medical
DX: E11.49 Type 2 diabetes mellitus with other diabetic neurological complication (principal); E83.52 Hypercalcemia
CPT/HCPCS: 36415; 80053; 80061; 83036; 83721; 83970